=== PATIENT | female | born 1995 | race Caucasian/White ===

== ENCOUNTER 2019-12-05 23:11 | Observation (INO) | payer OTHER, SELFPAY ==
[2019-12-05 23:39] VITALS: BP 106/64; PULSE 83
--- NOTE | 2020-01-03 08:30 | PM.OBTRLD ---
OB - Triage/Final Diagnosis Final Diagnosis (1) False labor: Code(s): O47.9 - False labor, unspecified Status: Acute
== END 2019-12-06 01:10 | disposition home or self-care (01) ==
PROVIDERS: Admitting Provider Obstetrics & Gynecology; Visit Provider Obstetrics & Gynecology
DX: O47.1 False labor at or after 37 completed weeks of gestation (principal); Z3A.37 37 weeks gestation of pregnancy
CPT/HCPCS: G0378; G0379

== ENCOUNTER 2019-12-15 10:18 | Observation (INO) | payer OTHER, SELFPAY ==
[2019-12-15 10:18] VITALS: BMI 28.2
--- NOTE | 2019-12-15 13:37 | OBADM ---
This patient, Minda Galvin, admitted to the OB room Labor/Delivery/Recovery 106 for observation. Patient/family oriented to hospital policies and general routines including ID bracelet, bed and alarms, visiting hours, pain management, procedures, bathroom and other care routines, personal items, smoking policy, room service/diet, and visiting hours. Patient/Family are encouraged to report perceived risks to care and to ask questions if they do not understand what they are told or what they should do.
--- NOTE | 2020-01-24 18:03 | PM.OBTRLD ---
OB - Triage/Final Diagnosis Final Diagnosis (1) False labor: Code(s): O47.9 - False labor, unspecified Status: Acute
== END 2019-12-15 12:47 | disposition home or self-care (01) ==
PROVIDERS: Admitting Provider Obstetrics & Gynecology; Visit Provider Obstetrics & Gynecology
DX: O47.1 False labor at or after 37 completed weeks of gestation (principal); Z3A.38 38 weeks gestation of pregnancy
CPT/HCPCS: G0378; G0379

== ENCOUNTER 2019-12-19 14:36 | Inpatient (IN) | payer OTHER, SELFPAY ==
[2019-12-19] VITALS (103 sets, daily range): BP systolic 97–137; BP diastolic 52–92; PULSE 51–101; TEMP 36.8–37; O2SAT 97–100; BMI 28.2
--- NOTE | 2019-12-19 16:13 | WPDHPUPDATE1 ---
History and Physical Update Update Date/Time: 12/19/19 16:10 24 yo G1 at 39w who presents in labor. she reports regular contrations and was found to be 3-4 cm dilated. She endorses good FM. She denies any vaginal bleeding or LOF. History and Physical has been reviewed, including an updated exam of the patient. There are NO changes in the patient's condition. Risks, benefits, and alternatives have been discussed and questions answered. Patient agrees to proceed with procedure. A/P admit to L&D routine admission orders T cat 1 expectant management
[2019-12-19 16:32] LABS: Basophils Absolute Auto 0.1 K/mm3 (0.0-0.1); Basophils Percent Auto 0.4 % (0.2-1.2); Eosinophils Absolute Auto 0.1 K/mm3 (0-0.3); Eosinophils Percent Auto 0.4 % (0-4.4); Hematocrit 33.3 % (37.0-47.0); Hemoglobin 11.1 g/dL (12.0-15.0); Immature Granulocyte Absolute 0.08 K/mm3 (0.00-0.031); Immature Granulocyte Percent A 0.6 % (0-0.5); Lymphocytes Absolute Auto 1.88 K/mm3 (0.9-3.2); Lymphocytes Percent Auto 13.8 % (18.3-44.2); Mean Corpuscular HGB Conc 33.3 g/dl (32-36); Mean Corpuscular Hemoglobin 31.7 pg (26-34); Mean Corpuscular Volume 95.1 fl (80-100); Mean Platelet Volume 10.1 fl (7.4-10.4); Monocytes Percent Auto 7.2 % (2.6-8.5); Neutrophils Absolute Auto 10.6 K/mm3 (1.3-6.7); Neutrophils Percent Auto 77.6 % (45.5-73.1); Platelet Count Result 294 k/mm3 (150-375); Red Cell Distribution Width 12.6 % (11.5-14.5); White Blood Count 13.6 K/mm3 (4.5-10.0)
[2019-12-19] MEDS: AMPICILLIN 2 GM/NS 100 ML 2 GM/100 ML BAG IVPB (16:33)
[2019-12-19] MEDS: LACTATED RINGERS 1,000 ML 125 ML IV CONT ×2 (16:34→18:43)
--- NOTE | 2019-12-19 16:55 | LDADM ---
This patient, Minda Galvin, was admitted to Labor/Delivery/Recovery 104 on 12/19/19 at 14:36. Plans for labor, pain management and were discussed with patient. Patient/family oriented to hospital policies and general routines including ID bracelet, bed and alarms, visiting hours, pain management, procedures, bathroom and other care routines, personal items, smoking policy, room service/diet and guest tray routines, infant security routines, and visiting hours. Patient/Family are encouraged to report perceived risks to care and to ask questions if they do not understand what they are told or what they should do. See OBIX for further documentation.
[2019-12-19 17:47] LABS: Amphetamine Screen Urine Negative (Negative); Barbiturate Screen Urine Negative (Negative); Benzodiazepines Screen Urine Negative (Negative); Cannabinoid Screen Urine Positive (Negative); Cocaine Screen Urine Negative (Negative); Methadone Screen Urine Negative (Negative); Opiate Screen Urine Negative (Negative); Phencyclidine Screen Urine Negative (Negative)
--- NOTE | 2019-12-19 18:51 | WPDANESEPPF ---
Anes - Initial Pre Proc Eval Procedure: labor epidural Date/Time: 12/19/19 18:51 Surgeon: Shmuel Platt MD Pre Op Diagnosis: labor pain Pre Op Diagnosis: labor pain Patient Data Age: 24 Gender: F Height: 1.57 m Weight: 70 kg Last Vital Signs Temp 36.8 C 12/19/19 18:47 Pulse 69 12/19/19 18:46 BP 119/78 12/19/19 18:46 Pulse Ox 98 12/19/19 18:48 Allergies Allergy/AdvReac Type Severity Reaction Status Date / Time morphine Allergy Unknown Verified 04/07/16 15:40 Home Medications Medication Instructions Recorded Confirmed Type PNV cmb#95-ferrous fumarate-FA 1 tablet PO DAILY 12/08/19 12/08/19 History [] fluoxetine 20 mg PO DAILY 12/08/19 12/08/19 History Laboratory Tests 12/19/19 12/19/19 12/19/19 16:10 16:10 16:10 WBC 13.6 K/mm3 H K/mm3 (4.5-10.0) RBC 3.50 M/mm3 L M/mm3 (4.2-5.4) Hgb 11.1 g/dL L g/dL (12.0-15.0) Hct 33.3 % L % (37.0-47.0) MCV 95.1 fl fl (80-100) MCH 31.7 pg pg (26-34) MCHC 33.3 g/dl g/dl (32-36) RDW 12.6 % % (11.5-14.5) Plt Count 294 k/mm3 k/mm3 (150-375) MPV 10.1 fl fl (7.4-10.4) Immature Gran % (Auto) 0.6 % H % (0-0.5) Neut % (Auto) 77.6 % H % (45.5-73.1) Lymph % (Auto) 13.8 % L % (18.3-44.2) [place] % (Auto) 7.2 % % (2.6-8.5) Eos % (Auto) 0.4 % % (0-4.4) Baso % (Auto) 0.4 % % (0.2-1.2) Lymph # (Auto) 1.88 K/mm3 K/mm3 (0.9-3.2) [place] # (Auto) 1.0 K/mm3 H K/mm3 (0.1-0.6) Eos # (Auto) 0.1 K/mm3 K/mm3 (0-0.3) Baso # (Auto) 0.1 K/mm3 K/mm3 (0.0-0.1) Abs Immat Gran (auto) 0.08 K/mm3 H K/mm3 (0.00-0.031) Absolute Neuts (auto) 10.6 K/mm3 H K/mm3 (1.3-6.7) Absolute Nucleated RBC 0.0 K/mm3 K/mm3 (0.0-0.012) Nucleated RBC % 0.0 % % (0.0-0.2) Urine Opiates Screen Urine Methadone Screen Ur Barbiturates Screen Ur Phencyclidine Scrn Ur Amphetamine Screen U Benzodiazepines Scrn Urine Cocaine Screen U Cannabinoids Screen RPR Pending Blood Type A Positive Antibody Screen Negative 12/19/19 17:22 WBC RBC Hgb Hct MCV MCH MCHC RDW Plt Count MPV Immature Gran % (Auto) Neut % (Auto) Lymph % (Auto) [place] % (Auto) Eos % (Auto) Baso % (Auto) Lymph # (Auto) [place] # (Auto) Eos # (Auto) Baso # (Auto) Abs Immat Gran (auto) Absolute Neuts (auto) Absolute Nucleated RBC Nucleated RBC % Urine Opiates Screen Negative (Negative) Urine Methadone Screen Negative (Negative) Ur Barbiturates Screen Negative (Negative) Ur Phencyclidine Scrn Negative (Negative) Ur Amphetamine Screen Negative (Negative) U Benzodiazepines Scrn Negative (Negative) Urine Cocaine Screen Negative (Negative) U Cannabinoids Screen Positive A (Negative) RPR Blood Type Antibody Screen Patient hx anesthesia problems: none Family hx anesthesia problems: none COUNT INCLUDES THE [facility] Family History Family History Mother Family history of cardiovascular disease Sibling Diabetes mellitus Grandparent Diabetes mellitus Social History Social History Years smoked: 12 Smoking status: Current every day smoker Second hand tobacco smoke exposure: Yes Alcohol intake: never Substance use: current Last use: 12/07/19 Gender identity (if verbalized by the patient): Female Spiritual care concerns: No Anes - Eval Final PreProcedure Day of Procedure 12/19/19 18:51 Patient
[2019-12-19] MEDS: FAMOTIDINE 20 MG/2 ML VIAL IV PUSH (19:39)
[2019-12-19] MEDS: ONDANSETRON INJ 4 MG/2 ML VIAL IV PUSH (19:54)
[2019-12-19] MEDS: AMPICILLIN 1 GM/NS 50 ML 1 GM/50 ML BAG IVPB (20:27)
[2019-12-20] VITALS (132 sets, daily range): BP systolic 84–134; BP diastolic 46–100; PULSE 58–159; RESP 16; TEMP 36.8–37.7; O2SAT 93–100
[2019-12-20] MEDS: AMPICILLIN 1 GM/NS 50 ML 1 GM/50 ML BAG IVPB ×2 (00:12→04:33)
[2019-12-20] MEDS: LACTATED RINGERS 1,000 ML 125 ML IV CONT ×2 (00:12→06:37)
[2019-12-20] MEDS: ONDANSETRON INJ 4 MG/2 ML VIAL IV PUSH ×2 (05:30→17:32)
[2019-12-20] MEDS: METHYLERGONOVINE MALEATE 0.2 MG/ML VIAL (08:02)
--- NOTE | 2019-12-20 08:11 | PM.OBPRVD ---
OB - Delivery Note Procedure Procedure: Patient pushed for a spontaneous vaginal delivery. The fetus was delivered atraumatically and placed on the maternal abdomen. The cord was clamped and cut after 1 minute of life. The cord was double clamped and cut and a segment of cord was collected for cord gases. Cord blood was collected for blood type and Coomb's testing. The placenta delivered spontaneously and was noted to be intact. The perineum was inspected and there was a 1st degree perineal laceration. The laceration was repaired with 3-0 vicryl in the usual fashion. The uterus was noted to be boggy with continued bleeding. IM methergine was given. After fundal massage and methergine, the uterus was firm and good hemostasis was noted. The patient and fetus were stable in the delivery room. Intrapartal events: None Delivery augmentation: pitocin Delivery monitor: external FHT Route of delivery: Episiotomy description: None Laceration description: Perineal - 1st Degree Delivery repair: vicryl Specimen: No Estimated blood loss (mL): 250 Anesthesia type: Epidural Disposition: floor () Complications: No immediate complications [place] Baby Date of : 12/20/19 Time of : 07:48 Weeks of gestation at delivery: 39 Infant gender: Male Weight (pounds): 9 Weight (ounces): 1 presentation: vertex position: Right Occiput Anterior Placenta delivery description: Spontaneous cord vessel description: 3 Vessels score one minute: 9 score five minutes: 9
[2019-12-20] MEDS: BENZOCAINE 20% AER SPR (*SP) 56 GM CAN 1 SPRAY TOPICAL (09:20)
[2019-12-20] MEDS: IBUPROFEN 600 MG TABLET PO ×2 (09:20→19:30)
[2019-12-20] MEDS: WITCH HAZEL 40 PADS 1 PAD TOPICAL (09:20)
[2019-12-20] MEDS: FLUOXETINE HCL 20 MG CAP PO (09:21)
[2019-12-20] MEDS: ACETAMINOPHEN 325 MG TABLET 650 MG PO (10:03)
--- NOTE | 2019-12-20 12:06 | PC.NURSE ---
Patient transferred to post room #282 via wheelchair. Support person present. Oriented to unit, room, information board, rooming in, admission packet and security measures. Patient verbalizes understanding.
--- NOTE | 2019-12-20 12:10 | PC.NURSE ---
Consulted with patient, mother states she wishes to attempt to breast. Mother is making independent attempts to latch without success. Reviewed feeding cues, frequencies, duration of feedings, feeding elimination flow sheet, and signs of adequate intake. sleepy, demonstrated stimulation techniques to wake infant for feeding. Assisted with infant to breast. tends to suck on his tongue. Reviewed positioning/alignment in football, holding breast in C hold and guided asymmetrical latch on. Several attempts before infant was able to latch correctly. nursed eagerly, with steady draws and [frequent/occasional] swallowing noted. Reviewed signs of a correct latch, effective nursing and suck swallow ratio. would draw back and slip down to shallow latch, with mother reporting discomfort. Demonstrated how to adjust latch more deeply while feeding. Nipple care reviewed. Instructed mother to call out for RN assistance if she is unable to latch for feeding or she has discomfort with nursing. Instructed feeding should be initiated three hours from start of last feeding or if feeding cues are noted before. Mother voiced understanding of information shared.
[2019-12-20] MEDS: TETANUS,DIPHTHERIA,AC PERTUSSIS ADULT 0.5 ML (ADACEL) IM (19:43)
[2019-12-21] MEDS: IBUPROFEN 600 MG TABLET PO ×2 (04:37→12:49)
[2019-12-21 05:48] LABS: Hematocrit 29.1 % (37.0-47.0); Hemoglobin 9.6 g/dL (12.0-15.0)
--- NOTE | 2019-12-21 07:20 | PC.NURSE ---
PT introductions made and plan of care discussed per post , pain management, breast /bottle feeding, daily care activities. PT verbalized understanding of such care.
[2019-12-21 07:52] LABS: Rapid Plasma Reagin Non-Reactive (NonReactive)
[2019-12-21 08:00] VITALS: BP 109/51; PULSE 69; RESP 16; TEMP 36.8; O2SAT 99
[2019-12-21] MEDS: DOCUSATE SODIUM 100 MG CAPSULE PO ×2 (08:46→17:40)
[2019-12-21] MEDS: POLYSACCHARIDE IRON COMPLEX 150 MG CAPSULE PO ×2 (08:46→17:40)
[2019-12-21] MEDS: MULTIVIT/MIN/PREN/FOL AC/IRON TABLET 1 TAB PO (08:46)
[2019-12-21] MEDS: ACETAMINOPHEN 325 MG TABLET 650 MG PO ×2 (08:47→12:50)
[2019-12-21] MEDS: LANOLIN (LANSINOH) 7.5 GM CREAM 1 APPLIC TOPICAL (08:48)
--- NOTE | 2019-12-21 10:00 | PC.NURSE ---
Consult with pt., mother states she is mostly bottle feeding due to her wishes.
[2019-12-21] MEDS: FLUOXETINE HCL 20 MG CAP PO (10:19)
--- NOTE | 2019-12-21 11:32 | PC.NURSE ---
PT requested to go out to smoke. No smoking policy was discussed with pt and hospital procedure. Nicotine patch was offered and pt declined and still plans to go out to smoke unattended.
--- NOTE | 2019-12-21 13:02 | WPDANLDPN2 ---
Anes-Prog Note L&D Date/Time: 12/21/19 13:02 Comfortable throughout: labor and delivery Neuraxial method: epidural Epidural/Spinal procedure site: clean & non-tender Neuro status: Neuro function grossly intact. Cardiovascular status: normal Respiratory status: normal Airway patency: baseline Mental status: baseline Post-Op hydration status: normal Vital Signs: Last Vital Signs Temp 36.8 C 12/21/19 08:00 Pulse 69 12/21/19 08:00 Resp 16 12/21/19 08:00 BP 109/51 L 12/21/19 08:00 Pulse Ox 99 12/21/19 08:00 Post-procedural complaints: none Patient feedback: Patient satisfied with anesthetic care. Other findings: Pt with c/o intense pressure at time of complete to delivery
--- NOTE | 2019-12-21 16:29 | PM.OBPNVD ---
OB - PN: Subj Subjective Date/time seen: 12/21/19 16:29 Narrative: Pain OK. Desires circumcision for son. OB - PN: Obj Data Labs CBC & Chem 7: 12/21/19 04:39 Labs: Laboratory Results - last 24 hr 12/19/19 12/21/19 16:10 04:39 Hgb 9.6 L Hct 29.1 L RPR Non-reactive OB - PN A/P Plan Comments: A: PPD#1, doing well. P: Routine care. Reviewed circ. Exam Psych: Other: AVSS ABD soft, nontender, fundus firm EXT nontender
[2019-12-21 19:58] VITALS: BP 114/49; PULSE 72; RESP 16; TEMP 36.8
--- NOTE | 2019-12-22 06:30 | PC.NURSE ---
PT introductions made and plan of care discussed per post , pain management, breast /bottle feeding, daily care activities and pending discharge to home. PT verbalized understanding of such care.
[2019-12-22 08:25] VITALS: BP 114/76; PULSE 66; RESP 18; TEMP 37.2; O2SAT 99
[2019-12-22] MEDS: FLUOXETINE HCL 20 MG CAP PO (08:26)
[2019-12-22] MEDS: MULTIVIT/MIN/PREN/FOL AC/IRON TABLET 1 TAB PO (08:26)
[2019-12-22] MEDS: IBUPROFEN 600 MG TABLET PO (08:27)
[2019-12-22] MEDS: DOCUSATE SODIUM 100 MG CAPSULE PO (08:27)
[2019-12-22] MEDS: POLYSACCHARIDE IRON COMPLEX 150 MG CAPSULE PO (08:27)
[2019-12-22] MEDS: ACETAMINOPHEN 325 MG TABLET 650 MG PO (08:28)
--- NOTE | 2019-12-22 08:36 | PM.OBPNVD ---
OB - PN: Subj Subjective Date/time seen: 12/22/19 08:36 Narrative: Pain OK. Would like to go home. Interested in DMPA for contraception. OB - PN: Obj Data Labs CBC & Chem 7: 12/21/19 04:39 OB - PN A/P Plan Comments: A: PPD#2, doing well. P: Home to f/u 6 weeks. DMPA today. Exam Psych: Other: AVSS ABD soft, nontender, fundus firm EXT nontender
--- NOTE | 2019-12-22 08:37 | PM.DS ---
DS: Summary Time Spent with Patient Time attestation: Total time spent providing and/or coordinating discharge services: Discharge Plan Discharge Attending physician on discharge: Shmuel Platt Discharging Clinician: Shmuel Platt Patient Disposition: Home, Self-Care Activity: pelvic rest Diet: regular Discharge Instructions: Education: Mom and Baby Guide Given to: Mother Follow-Up: Call your delivering provider's office for an appointment to be seen in: 4 Weeks Mom and baby should come to the [facility] for the follow-up appointment. Appointment Date/Time: December 23, 2019 at 9:00 am What to expect at your follow-up visit: Blood Pressure Check Call [phone] if you are unable to keep your appointment time. BREAST CARE: 1. Wear a snug supportive bra. 2. For engorgement discomfort: Breast Feeding: A. Apply warm moist washcloths B. Express milk as needed to relieve engorgement C. Wear loose clothing Bottle Feeding: A. May apply ice packs 3. For sore nipples: A. Identify correct latch-on B. Apply warm moist washcloths before and after nursing C. Air dry nipples after nursing D. May apply [place] cream to nipples PERINEAL CARE: 1. Until bleeding stops, use your jolanta bottle after urinating 2. Change your pad frequently throughout the day 3. You may take sitz baths several times a day (fill your bathtub with warm water and soak for 20 minutes.) Do NOT bathe in the water 4. No tub baths until seen by your physician - You may shower ACTIVITY: 1. Rest as much as possible. 2. Do not exercise or lift anything heavier than your baby (such as laundry or other children.) 3. Avoid stairs or driving as much as possible. 4. Do not put anything into the vagina. No douching, tampons, or sexual activity until seen by physician. NOTIFY PHYSICIAN IF YOU HAVE ANY QUESTIONS OR IF ANY OF THE FOLLOWING SYMPTOMS OCCUR: 1. If your perineum becomes red, swollen, or more painful than what you have experienced in the hospital. 2. If your vaginal bleeding becomes foul smelling. 3. If your vaginal bleeding becomes more heavy than a period or if your bleeding changes from pink to bright red. However, you may pass an occasional walnut-sized clot once or twice for the first week . 4. If you experience a sharp, shooting pain in you calves. 5. If you discover a hard, reddened area on your breast or if you experience flu-like symptoms. 6. Call for temp 100.4 or greater DIET: 1. Eat regular, well-balanced meals. 2. Drink plenty of fluids daily. If , drink to thirst. Patient Instructions: How to Stop Smoking (DC) Stand Alone Forms: General Discharge Information Follow-up/Referrals: Shmuel Platt MD [Physician] - (6 weeks) Discharge Medications: New ibuprofen 600 mg tablet 600 mg PO Q6H PRN (Reason: cramps) Qty: 30 RF: 0 ferrous sulfate 325 mg (65 mg iron) tablet 325 mg PO DAILY Qty: 30 RF: 0 Continued PNV cmb#95-ferrous fumarate-FA [] 28 mg iron- 800 mcg Tablet 1 tablet PO DAILY RF: 0 fluoxetine 20 mg Capsule 20 mg PO DAILY RF: 0 Date of admission: 12/19/19 14:36 Primary Care Provider: UNKNOWN,DOCTOR Admitting Provider: Shmuel Platt Attending physician on admission: Shmuel Platt
--- NOTE | 2019-12-22 10:00 | PC.NURSE ---
Patient viewed the discharge video Mother & Baby Care, The First Two Weeks . Patient was given the opportunity and encouraged to ask questions. Patient verbalized understanding of information shared and has been given the mother/baby guide for home reference.
--- NOTE | 2019-12-22 10:30 | PC.NURSE ---
Consult with pt., mother states she will mostly bottle feed, and plans to put to breast when her milk is in a few times per day. Mother states her plan is to mostly bottle feed, mother has mostly bottle fed while in the hospital. Discussed milk supply and stimulation. Mother states she has a pump at home and may initiate pumping. Instructions given on breast pump care and usage, pumping schedule, nipple care, and collection and storage of breast milk. Encouraged [id number], breast massage and manual expression to stimulate supply. Pumping log provided and reviewed. Stressed the importance of regular stimulation for increased milk supply. Mother is feeding as required and waking to feed if needed. is currently meeting outcomes for weight, output, jaundice and feeding frequencies. Mother states she feels confident to continue bottle feeding and putting infant to breast a few times per day at home. Reviewed transition to breast milk, signs of adequate intake, and engorgement/relief. Instructed to call ICP if intake/output less than required. Reviewed regular medications mother is taking. Information provided per Evie. Reviewed community resources on the [facility] website and in the Mom/Baby guide. Information on outpatient services provided. Mother has no further questions at this time.
[2019-12-22] MEDS: medroxyPROGESTERone ACETATE IM 150 MG/ML SYR IM (11:00)
--- NOTE | 2019-12-22 11:00 | PC.NURSE ---
PT received discharge instructions per protocol and verbalized understanding of such care,
--- NOTE | 2019-12-22 11:40 | PC.NURSE ---
Pt discharged to home ambulatory accompanied by significant other and to waiting car. Follow up appts confirmed
[2019-12-23 09:34] VITALS: BP 119/77; PULSE 63; RESP 18; TEMP 36.9
== END 2019-12-22 11:40 | disposition home or self-care (01) | DRG 560 ==
LOC: ANHLDR 12-20 08:37 → ANHOB2 12-20 10:51
PROVIDERS: Student in an Organized Health Care Education/Training Program; Admitting Provider Obstetrics & Gynecology; Visit Provider Obstetrics & Gynecology
DX: O99.824 Streptococcus B carrier state complicating childbirth (principal); Z37.0 Single live birth; Z3A.39 39 weeks gestation of pregnancy; O36.8330 Maternal care for abnormalities of the fetal heart rate or rhythm, third trimester, not applicable or unspecified; O70.0 First degree perineal laceration during delivery; O99.52 Diseases of the respiratory system complicating childbirth; J45.909 Unspecified asthma, uncomplicated; O99.334 Smoking (tobacco) complicating childbirth; F17.210 Nicotine dependence, cigarettes, uncomplicated
CPT/HCPCS: 36415; 80307; 85014; 85018; 85025; 86592; 86850; 86900; 86901; 90715; A9270; J0290; J1050; J2210; J2405; J2590; J2795; J3010; J7120

== ENCOUNTER 2020-03-02 15:00 | Emergency (ER) | payer OTHER, SELFPAY ==
--- NOTE | ~2020-03-02 | XR_ITS ---
EXAMINATION: XR chest 2V 03/02/2020 15:55 INDICATION: Shortness of breath. Cough. PROCEDURE: 2 view chest COMPARISON: 08/07/2015 FINDINGS: The lungs are clear. The cardiomediastinal silhouette is within normal limits. There are no pleural effusions. There is no pneumothorax suspected. IMPRESSION: 1: NO ACUTE CARDIOPULMONARY DISEASE. Reviewed, dictated and finalized at location A.
[2020-03-02 15:02] VITALS: BP 129/69; PULSE 85; RESP 20; TEMP 36.9; O2SAT 99
--- NOTE | 2020-03-02 15:20 | ED.GENADULT ---
HPI - General Adult General Chief complaint: Unspecified Stated complaint: SOB/multiple complaints Time Seen by Provider: 03/02/20 15:11 History of Present Illness HPI narrative: 24 yo female c/o SOB, numbness and tingling, hemoptysis. She gave aproximately 2 m,onths ago since that time she has had multiple issues. SHe has had ongoing vaginal bleeding which is mild to moderate. She was started on control to help stop the bleeding. She then began having itching and feeling as though her tongue was swelling. She was taken off of that medication. She then began having intermittent SOB and chest tightness. She has had similar symptoms due to anxiety, but she read the warning label on the control and is concerned that she might have a blood clot. Related Data Home Medications Medication Instructions Recorded Confirmed PNV cmb#95-ferrous fumarate-FA 1 tablet PO DAILY 12/08/19 12/08/19 [] fluoxetine 20 mg PO DAILY 12/08/19 12/08/19 Allergies Allergy/AdvReac Type Severity Reaction Status Date / Time morphine Allergy Unknown Unknown Verified 03/02/20 15:05 Review of Systems Review of Systems: All systems reviewed & are unremarkable except as noted in HPI and below Constitutional: Constitutional: Denies fever(s) Cardiovascular: Cardiovascular: Reports chest pain and Reports rapid heart rate Respiratory: Respiratory: Reports dyspnea Genitourinary: Genitourinary: Reports abnormal vaginal bleeding Neurologic: Reports numbness PMFSH Family History Family History Mother Family history of cardiovascular disease Sibling Diabetes mellitus Grandparent Diabetes mellitus Social History Social History Years smoked: 12 Smoking status: Current every day smoker Second hand tobacco smoke exposure: Yes Alcohol intake: never Substance use: current Last use: 12/07/19 Gender identity (if verbalized by the patient): Female Spiritual care concerns: No Exam Const: General: healthy appearing, no acute distress and alert Nutritional Appearance: well nourished Orientation/consciousness: patient oriented x3 HENMT: Head: normal to inspection Chest: Chest palpation & inspection: normal inspection of the chest Resp: Effort & Inspection: normal respiratory effort Auscultation: clear to auscultation bilaterally Cardio: Rate: regular rate Rhythm: regular rhythm GI: GI Palp: Yes Soft to palpation and No Tenderness to palpation present (GI) Skin: General skin exam: normal color Neuro: General: patient oriented x3, moves all extremities, no focal motor deficits and CN's II-XI intact bilaterally Speech: normal speech Extrem: General: normal to inspection and no edema Other: No calf tenderness Psych: Affect: Anxious affect present Course Vital Signs Vital signs: Vital Signs Temperature 36.9 C 03/02/20 15:02 Pulse Rate 85 03/02/20 15:02 Respiratory Rate 20 03/02/20 15:02 Blood Pressure 129/69 03/02/20 15:02 Pulse Oximetry 99 03/02/20 15:02 Temperature 36.9 C 03/02/20 15:02 Pulse Rate 90 03/02/20 16:45 Respiratory Rate 16 03/02/20 16:45 Blood Pressure 109/61 03/02/20 16:45 Pulse Oximetry 96 03/02/20 16:45 Medical Decision Making MDM Narrative Medical decision making narrative: CXR clear. H/H improved. No tahcycardia or other abnormal VS to suggest that testing for PE might be indicated. She syas that she is feeling much better after reassurance. Medical Records Medical records reviewed: Yes I reviewed the patient's medical records. Vital Signs Vital Signs: Vital Signs Temperature 36.9 C 03/02/20 15:02 Pulse Rate 85 03/02/20 15:02 Respiratory Rate 03/02/20 15:02 Blood Pressure 129/69 03/02/20 15:02 Pulse Oximetry 99 03/02/20 15:02 Temperature 36.9 C 03/02/20 15:02 Pulse Rate 90 03/02/20 16:45
[2020-03-02 15:47] LABS: Basophils Absolute Auto 0.1 K/mm3 (0.0-0.1); Eosinophils Absolute Auto 0.1 K/mm3 (0-0.3); Eosinophils Percent Auto 2.1 % (0-4.4); Hematocrit 38.4 % (37.0-47.0); Immature Granulocyte Absolute 0.01 K/mm3 (0.00-0.031); Immature Granulocyte Percent A 0.2 % (0-0.5); Lymphocytes Absolute Auto 1.27 K/mm3 (0.9-3.2); Lymphocytes Percent Auto 20.9 % (18.3-44.2); Mean Corpuscular HGB Conc 33.9 g/dl (32-36); Mean Corpuscular Hemoglobin 31.1 pg (26-34); Mean Corpuscular Volume 91.9 fl (80-100); Mean Platelet Volume 9.3 fl (7.4-10.4); Monocytes Absolute Auto 0.4 K/mm3 (0.1-0.6); Monocytes Percent Auto 6.3 % (2.6-8.5); Neutrophils Absolute Auto 4.2 K/mm3 (1.3-6.7); Neutrophils Percent Auto 69.5 % (45.5-73.1); Platelet Count Result 277 k/mm3 (150-375); Red Blood Count 4.18 M/mm3 (4.2-5.4); White Blood Count 6.1 K/mm3 (4.5-10.0)
[2020-03-02 15:58] LABS: Blood Urea Nitrogen 12 mg/dL (7-17); Calcium 9.1 mg/dL (8.4-10.2); Carbon Dioxide 21 mmol/L (22-30); Chloride 110 mmol/L (98-107); Estimated Glomerular Filt Rate > 60; Glucose 88 mg/dL (65-105); Potassium 3.5 mmol/L (3.4-5.0); Sodium 140 mmol/L (137-145)
[2020-03-02 16:45] VITALS: BP 109/61; PULSE 90; RESP 16; O2SAT 96
== END 2020-03-02 16:45 | disposition home or self-care (01) ==
PROVIDERS: Emergency Provider Emergency Medicine
DX: R06.02 Shortness of breath (principal); F17.200 Nicotine dependence, unspecified, uncomplicated
CPT/HCPCS: 36415; 71046; 80048; 85025; 99283

== ENCOUNTER 2021-09-12 13:58 | Emergency (ER) | payer OTHER, SELFPAY ==
--- NOTE | ~2021-09-12 | XR_ITS ---
EXAMINATION: XR chest 2V DATE: 09/12/2021 16:34 INDICATION: Palpitations. TECHNIQUE: Frontal and lateral views of the chest were obtained. COMPARISON: Chest 2 views 03/02/2020 FINDINGS: The chest demonstrates clear lungs without pneumonia, pleural effusion, or pneumothorax. Th e heart size is normal. IMPRESSION: 1. No acute cardiopulmonary disease. Reviewed, dictated and finalized at location A. TENDER
--- NOTE | 2021-09-12 14:01 | ECG_ITS ---
Measurements Intervals [place] Rate: 74 P: 68 CA: 147 QRS: 51 QRSD: 87 T: -9 QT: 337 QTc: 376 Interpretive Statements SINUS RHYTHM WITH SINUS ARRHYTHMIA POSSIBLE LEFT ATRIAL ENLARGEMENT DELAYED PRECORDIAL R/S TRANSITION BORDERLINE T WAVE ABNORMALITY- ANT/INF LEADS BASELINE ARTIFACT- I, V2 BORDERLINE ECG Electronically Signed On 09-12-2021 14:30:32 ECHOCARDIOLOGIST by Timmy Nicole D.O.
[2021-09-12 14:05] VITALS: BP 122/70; PULSE 110; RESP 16; TEMP 36.2; O2SAT 100
[2021-09-12 15:50] VITALS: BP 122/61; PULSE 72; RESP 16; O2SAT 99
[2021-09-12 16:08] LABS: Basophils Absolute Auto 0.1 K/mm3 (0.0-0.1); Basophils Percent Auto 0.8 % (0.2-1.2); Eosinophils Absolute Auto 0.1 K/mm3 (0-0.3); Eosinophils Percent Auto 0.8 % (0-4.4); Hematocrit 41.1 % (37.0-47.0); Hemoglobin 14.3 g/dL (12.0-15.0); Immature Granulocyte Absolute 0.03 K/mm3 (0.00-0.031); Immature Granulocyte Percent A 0.3 % (0-0.5); Lymphocytes Absolute Auto 1.65 K/mm3 (0.9-3.2); Lymphocytes Percent Auto 18.2 % (18.3-44.2); Mean Corpuscular HGB Conc 34.8 g/dl (32-36); Mean Corpuscular Hemoglobin 31.6 pg (26-34); Mean Corpuscular Volume 90.7 fl (80-100); Mean Platelet Volume 9.4 fl (7.4-10.4); Monocytes Absolute Auto 0.4 K/mm3 (0.1-0.6); Monocytes Percent Auto 4.3 % (2.6-8.5); Neutrophils Absolute Auto 6.8 K/mm3 (1.3-6.7); Neutrophils Percent Auto 75.6 % (45.5-73.1); Platelet Count Result 286 k/mm3 (150-375); Red Blood Count 4.53 M/mm3 (4.2-5.4); Red Cell Distribution Width 11.8 % (11.5-14.5); White Blood Count 9.1 K/mm3 (4.5-10.0)
[2021-09-12] MEDS: SODIUM CHLORIDE 0.9% IV 1,000 ML 999 ML IV CONT (16:10)
[2021-09-12 16:14] LABS: Prothrombin Time 12.7 Seconds (11.1-14.7)
[2021-09-12 16:15] LABS: Anion Gap 12 mmol/L (8-16); Blood Urea Nitrogen 11 mg/dL (7-17); Calcium 10.1 mg/dL (8.4-10.2); Carbon Dioxide 24 mmol/L (22-30); Chloride 101 mmol/L (98-107); Estimated CRCL calculation 96 ml/min; Estimated Glomerular Filt Rate > 60; Glucose 94 mg/dL (65-110); Partial Thromboplastin Time 27.5 SECONDS (22.3-36.8); Sodium 137 mmol/L (137-145)
[2021-09-12 16:27] LABS: Troponin I < 0.012 ng/mL (0.000-0.034)
--- NOTE | 2021-09-12 16:36 | ED.ARRPALP ---
HPI - Arrhythmia/Palpitations General Chief Complaint: Arrhythmia/Palpitations Stated Complaint: JITTERY, HEART PALPATATIONS X1D Time Seen by Provider: 09/12/21 15:36 History of Present Illness HPI narrative: Patient is a 26-year-old female who presents ER with concerns of palpitations. Reports she had similar issues a year ago and had a Holter monitor but could not see cardiology due to insurance issues. She has been doing well since then however over the last day she has had recurrence of this where she feels like her heart will go fast and she feels shaky in her hands. Patient has some pressured speech. Denies any alleviating factors. She reports she can feel the sensation when she is bending over or walking or doing other minor tasks. No shortness of breath. No fevers but has had some chills. No known sick contacts. Related Data Home Medications Medication Instructions Recorded Confirmed No Home Medications 09/12/21 09/12/21 Allergies Allergy/AdvReac Type Severity Reaction Status Date / Time morphine Allergy Unknown Unknown Verified 09/12/21 15:15 Review of Systems Review of Systems: All systems reviewed & are unremarkable except as noted in HPI and below Constitutional: Constitutional: Reports chills and Denies fever(s) Cardiovascular: Cardiovascular: Denies chest pain, Reports rapid heart rate and Denies radiating jaw, neck or arm pain Respiratory: Respiratory: Denies cough, Denies dyspnea and Denies wheezing Gastrointestinal: Gastrointestinal: Denies abdominal pain, Denies nausea and Denies vomiting PMFSH Past Medical History Medical History (Updated 09/12/21 @ 16:50 by Ammon Gallegos MD) Asthma Kidney stones Surgical History Surgical History (Updated 09/12/21 @ 16:45 by Ammon Gallegos MD) History of appendectomy History of tonsillectomy Family History Family History Mother Family history of cardiovascular disease Sibling Diabetes mellitus Grandparent Diabetes mellitus Social History Social History Years smoked: 12 Smoking status: Current every day smoker Second hand tobacco smoke exposure: Yes Alcohol intake: never Substance use: current Last use: 12/07/19 Gender identity (if verbalized by the patient): Female Spiritual care concerns: No Exam Narrative: GENERAL: Well-appearing, well-nourished, and in no acute distress. HEAD: Normocephalic, atraumatic. EYES: PERRL and EOMI. ENT: Mucous membranes moist. CHEST: Clear to auscultation. No respiratory distress. HEART: Regular rate and rhythm. Normal peripheral pulses. ABDOMEN: Soft, nontender, nondistended. EXTREMITIES: Normal range of motion. No edema. SKIN: Warm, dry, no rash. NEURO: Alert and oriented x3. PSYCH: Mildly anxious with pressured speech. Normal tone otherwise Course Course Emergency Course: Patient form results. Labs unremarkable. Discharge home. Patient has follow-up scheduled with PCP tomorrow. Vital Signs Vital signs: Vital Signs Temperature 97.1 F L 09/12/21 14:05 Pulse Rate 110 H 09/12/21 14:05 Respiratory Rate 16 09/12/21 14:05 Blood Pressure 122/70 09/12/21 14:05 Pulse Oximetry 100 09/12/21 14:05 Temperature 97.1 F L 09/12/21 14:05 Pulse Rate 72 09/12/21 15:50 Respiratory Rate 16 09/12/21 15:50 Blood Pressure 122/61 09/12/21 15:50 Pulse Oximetry 99 09/12/21 15:50 MDM - Arrhythmia/Palpitations Lab Data Result diagrams: 09/12/21 15:55 09/12/21 15:55 Labs: Lab Results 09/12/21 09/12/21 09/12/21 Range/Units 15:55 15:55 15:55 WBC 9.1 (4.5-10.0) K/mm3 RBC 4.53 (4.2-5.4) M/mm3 Hgb 14.3 (12.0-15.0) g/dL Hct 41.1 (37.0-47.0) % MCV 90.7 (80-100) fl MCH 31.6 (26-34) pg MCHC 34.8 (32-36) g/dl RDW 11.8 (11.5-14.5) % Plt Count 286 (150-375) k/mm3 MP
[2021-09-12 17:37] VITALS: BP 106/54; PULSE 83; RESP 16; O2SAT 100
== END 2021-09-12 17:38 | disposition home or self-care (01) ==
PROVIDERS: Emergency Provider Emergency Medicine
DX: R00.2 Palpitations (principal); F41.9 Anxiety disorder, unspecified; J45.909 Unspecified asthma, uncomplicated; Z87.442 Personal history of urinary calculi; F17.200 Nicotine dependence, unspecified, uncomplicated; R94.31 Abnormal electrocardiogram [ECG] [EKG]
CPT/HCPCS: 36415; 71046; 80048; 81025; 84484; 85025; 85610; 85730; 93005; 96360; 99284; J7030

== ENCOUNTER 2021-09-16 21:37 | Emergency (ER) | payer OTHER, SELFPAY ==
[2021-09-16 21:50] VITALS: BP 107/54; PULSE 73; RESP 17; TEMP 36.6; O2SAT 98
[2021-09-16 22:22] LABS: Add Urine Microscopic? YES; Appearance Urine Clear (Clear); Bilirubin Urine Negative (Negative); Blood Urine 3+ (Negative); Color Urine Straw (Yellow); Glucose Urine UA Negative (Negative); Ketones Urine Negative (Negative); Leukocyte Esterase Ur Negative LEU/UL (Negative); Nitrate Urine Negative (Negative); Protein Urine Negative (Negative); RBC Urine >75 /hpf (0-2); Specific Grav Ur 1.012 (1.001-1.035); Squamous Epithelial Cell Urine Rare /hpf (Few); Urobilinogen Urine Negative mg/dL (<2.0); WBC Urine 0-3 /hpf
[2021-09-16 23:21] VITALS: BP 97/70; PULSE 82; RESP 16; O2SAT 97
[2021-09-16] MEDS: FAMOTIDINE 20 MG TABLET PO (23:23)
[2021-09-16] MEDS: predniSONE 20 MG TABLET PO (23:24)
--- NOTE | 2021-09-16 23:38 | ED.ALLEREA ---
HPI - Allergic Reaction General Chief complaint: Allergic Reaction Stated complaint: throat tightness after taking nitrofurantoin Time Seen by Provider: 09/16/21 22:58 Source: patient Mode of arrival: ambulatory Limitations: no limitations History of Present Illness HPI narrative: 26 year old female with no significant PMH arrives complaining of throat tightness and bilateral hand rash, itching after taking macrobid. Patient took a total of 5 doses and after her fifth dose developed a lump in her throat, difficulty swallowing and rash to hands. No other known allergens, no previous history of same. No wheezing, no shortness of breath. 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 Patient arrives alert, NAD, speaking full sentences without difficulty, respirations unlabored. Related Data Allergies Allergy/AdvReac Type Severity Reaction Status Date / Time morphine Allergy Unknown Unknown Verified 09/16/21 21:55 nitrofurantoin Allergy Swelling Verified 09/16/21 21:55 [From Macrobid] of Lip/Tongue/Throat Review of Systems Review of Systems: CONSTITUTIONAL: no fever, no weight loss, no confusion EYES: no vision changes, no eye pain ENT: no rhinorrhea, no sore throat, positive for difficulty swallowing CARDIOVASCULAR: no chest pain, no leg edema, no palpitations RESPIRATORY: no cough, no shortness of breath, no hemoptysis GASTROINTESTINAL: no abdominal pain, no nausea, no vomiting GENITOURINARY: no flank pain, no dysuria, no hematuria SKIN: urticarial rash, no jaundice MUSCULOSKELETAL: no back pain, no trauma. NEUROLOGIC: No headache, no dizziness, no focal weakness PSYCHIATRIC: No hallucinations, no suicidal ideation [facility] Past Medical History Medical History Asthma Kidney stones Surgical History Surgical History History of appendectomy History of tonsillectomy Family History Family History Mother Family history of cardiovascular disease Sibling Diabetes mellitus Grandparent Diabetes mellitus Social History Social History Years smoked: 12 Smoking status: Current every day smoker Second hand tobacco smoke exposure: Yes Alcohol intake: never Substance use: current Last use: 12/07/19 Gender identity (if verbalized by the patient): Female Spiritual care concerns: No Exam Narrative: General: alert, afebrile, answering all questions appropriately Head: normocephalic, atraumatic Eyes: EOMI bilaterally, anicteric, no injection ENT: moist mucous membranes, oropharynx patent, uvula midline, no soft palate swelling Neck: supple, trachea midline, enlarged thyroid noted Chest: equal chest rise bilaterally, no chest wall trauma noted Lungs: clear to auscultation bilaterally, respirations unlabored CV: regular rate, no REMA B, calf size equal bilaterally EXT: no deformity noted, moving all extremities equally Skin: warm, dry, no pallor; urticarial rash B hands. Neuro: alert, oriented x 3; CN 2-12 grossly intact, no dysarthria Psych: affect appropriate, though content normal Course Vital Signs Vital signs: Vital Signs Temperature 36.6 C 09/16/21 21:50 Pulse Rate 73 09/16/21 21:50 Respiratory Rate 17 09/16/21 21:50 Blood Pressure 107/54 L 09/16/21 21:50 Pulse Oximetry 98 09/16/21 21:50 Temperature 36.6 C 09/16/21 21:50 Pulse Rate 82 09/16/21 23:21 Respiratory Rate 16 09/16/21 23:21 Blood Pressure 97/70 L 09/16/21 23:21 Pulse Oximetry 97 09/16/21 23:21 MDM - Allergic Reaction MDM Narrative Medical decision making narrative: Oropharynx patent, no shortness of breath, B hand rash with no other known allergens. Symptoms improved after taking benadryl at home. Plan to give prednisone in ED as well as pepcid. Advised
[2021-09-16 23:47] VITALS: BP 99/54; PULSE 71; RESP 20; O2SAT 97
== END 2021-09-16 23:55 | disposition home or self-care (01) ==
PROVIDERS: Emergency Medicine; Emergency Provider Emergency Medicine
DX: T78.40XA Allergy, unspecified, initial encounter (principal); J45.909 Unspecified asthma, uncomplicated; Z87.442 Personal history of urinary calculi
CPT/HCPCS: 81001; 81025; 99283; A9270; J7512

== ENCOUNTER 2021-09-22 15:36 | Emergency (ER) | payer OTHER, SELFPAY ==
--- NOTE | ~2021-09-22 | XR_ITS ---
EXAMINATION: XR chest 2V 09/22/2021 16:37 INDICATION: Chest palpitations. PROCEDURE: AP and lateral views of the chest COMPARISON: No prior studies for comparison. FINDINGS: The lungs are clear. The cardiomediastinal silhouette is within normal limits. There are no pleural effusions. There is no pneumothorax suspected. IMPRESSION: 1: NO ACUTE CARDIOPULMONARY DISEASE. Reviewed, dictated and finalized at location A. ER ELECTRICAL
[2021-09-22 16:00] VITALS: BP 109/67; PULSE 71; RESP 18; TEMP 36.4; O2SAT 98
--- NOTE | 2021-09-22 16:00 | ECG_ITS ---
Measurements Intervals [place] Rate: 73 P: 72 [place]: 139 QRS: 52 QRSD: 90 T: 9 QT: 388 QTc: 428 Interpretive Statements SINUS RHYTHM WITH MARKED SINUS ARRHYTHMIA BORDERLINE ST-T WAVE ABNORMALITY- INFERIOR LEADS BASELINE ARTIFACT- I, II, AVR BORDERLINE ECG Electronically Signed On 09-22-2021 17:40:54 PATROL LADY by Timmy Nicole D.O.
[2021-09-22 16:17] LABS: Basophils Absolute Auto 0.1 K/mm3 (0.0-0.1); Basophils Percent Auto 0.6 % (0.2-1.2); Eosinophils Absolute Auto 0.1 K/mm3 (0-0.3); Eosinophils Percent Auto 0.9 % (0-4.4); Hemoglobin 13.2 g/dL (12.0-15.0); Immature Granulocyte Absolute 0.02 K/mm3 (0.00-0.031); Immature Granulocyte Percent A 0.3 % (0-0.5); Lymphocytes Percent Auto 25.1 % (18.3-44.2); Mean Corpuscular HGB Conc 33.8 g/dl (32-36); Mean Corpuscular Hemoglobin 31.3 pg (26-34); Mean Corpuscular Volume 92.4 fl (80-100); Mean Platelet Volume 9.1 fl (7.4-10.4); Monocytes Absolute Auto 0.5 K/mm3 (0.1-0.6); Monocytes Percent Auto 6.4 % (2.6-8.5); Neutrophils Absolute Auto 5.3 K/mm3 (1.3-6.7); Neutrophils Percent Auto 66.7 % (45.5-73.1); Platelet Count Result 280 k/mm3 (150-375); Red Blood Count 4.22 M/mm3 (4.2-5.4)
[2021-09-22 16:21] VITALS: BP 129/72; PULSE 45; RESP 18; O2SAT 98
[2021-09-22 16:29] LABS: Alanine Aminotransferase 22 U/L (4-35); Albumin Level 4.7 g/dL (3.5-5.1); Alkaline Phosphatase 59 U/L (38-126); Anion Gap 7 mmol/L (8-16); Aspartate Amino Transferase 23 U/L (14-36); Bilirubin,Total 0.3 mg/dL (0.2-1.3); Blood Urea Nitrogen 12 mg/dL (7-17); Calcium 9.6 mg/dL (8.4-10.2); Carbon Dioxide 28 mmol/L (22-30); Chloride 101 mmol/L (98-107); Estimated CRCL calculation 83 ml/min; Estimated Glomerular Filt Rate > 60; Glucose 113 mg/dL (65-110); Potassium 3.8 mmol/L (3.4-5.0); Sodium 136 mmol/L (137-145)
[2021-09-22 17:24] VITALS: BP 132/96; PULSE 54; RESP 14; O2SAT 99
[2021-09-22] MEDS: SODIUM CHLORIDE 0.9% IV 1,000 ML 999 ML IV CONT (17:39)
--- NOTE | 2021-09-22 19:02 | ED.GENADULT ---
HPI - General Adult General Chief complaint: Dizziness Stated complaint: confusion, dizzy Time Seen by Provider: 09/22/21 16:31 History of Present Illness HPI narrative: Patient is a 26-year-old female who presents ER with reports of lightheadedness and confusion. Patient reports for the last week she has been having episodes where she gets lightheaded and she will then feel like she has tingling in her fingers and toes on occasion. She also occasionally feel like her heart is racing. She said no loss of consciousness. No fevers or chills or sweats. She feels better today than she had in previous days. She was recently started on Zoloft for her baseline anxiety. Reports this does not feel like her typical anxiety attack. No additional medication changes. Related Data Allergies Allergy/AdvReac Type Severity Reaction Status Date / Time morphine Allergy Unknown Hives Verified 09/22/21 16:24 nitrofurantoin Allergy Swelling Verified 09/22/21 16:24 [From Macrobid] of Lip/Tongue/Throat Review of Systems Review of Systems: All systems reviewed & are unremarkable except as noted in HPI and below Constitutional: Constitutional: Denies chills, Reports fatigue and Denies fever(s) ENT: Denies nasal congestion and Denies sore throat Cardiovascular: Cardiovascular: Denies chest pain, Reports rapid heart rate and Denies radiating jaw, neck or arm pain Respiratory: Respiratory: Denies cough and Denies dyspnea Genitourinary: Genitourinary: Denies nocturia, Denies dysuria and Denies flank pain Neurologic: Reports dizziness, Denies syncope, Denies headache(s), Denies focal weakness and Denies numbness PMF Past Medical History Medical History (Updated 09/22/21 @ 19:12 by Ammon Gallegos MD) Anxiety Asthma Kidney stones Surgical History Surgical History History of appendectomy History of tonsillectomy Family History Family History Mother Family history of cardiovascular disease Sibling Diabetes mellitus Grandparent Diabetes mellitus Social History Social History Years smoked: 12 Smoking status: Current every day smoker Second hand tobacco smoke exposure: Yes Alcohol intake: never Substance use: current Last use: 12/07/19 Gender identity (if verbalized by the patient): Female Spiritual care concerns: No Exam Narrative: GENERAL: Well-appearing, well-nourished, and in no acute distress. HEAD: Normocephalic, atraumatic. CHEST: Clear to auscultation. No respiratory distress. HEART: Regular rate and rhythm. Normal peripheral pulses. ABDOMEN: Soft, nontender, nondistended. EXTREMITIES: Normal range of motion. No edema. SKIN: Warm, dry, no rash. NEURO: Alert and oriented x3. PSYCH: Normal mood and affect. Course Course Emergency Course: Unremarkable evaluation. Discharge home. Likely anxiety. Vital Signs Vital signs: Vital Signs Temperature 97.6 F 09/22/21 16:00 Pulse Rate 71 09/22/21 16:00 Respiratory Rate 18 09/22/21 16:00 Blood Pressure 109/67 09/22/21 16:00 Pulse Oximetry 98 09/22/21 16:00 Temperature 97.6 F 09/22/21 16:00 Pulse Rate 54 L 09/22/21 17:24 Respiratory Rate 14 09/22/21 17:24 Blood Pressure 132/96 H 09/22/21 17:24 Pulse Oximetry 99 09/22/21 17:24 Medical Decision Making Vital Signs Vital Signs: Vital Signs Temperature 97.6 F 09/22/21 16:00 Pulse Rate 71 09/22/21 16:00 Respiratory Rate 18 09/22/21 16:00 Blood Pressure 109/67 09/22/21 16:00 Pulse Oximetry 98 09/22/21 16:00 Temperature 97.6 F 09/22/21 16:00 Pulse Rate 54 L 09/22/21 17:24 Respiratory Rate 14 09/22/21 17:24 Blood Pressure 132/96 H 09/22/21 17:24 Pulse Oximetry 99 09/22/21 17:24 Lab Data Result diagrams: 09/22/21 16:11 09/22/21 16:11
[2021-09-22 19:28] VITALS: BP 120/76; PULSE 68; RESP 16; O2SAT 100
== END 2021-09-22 19:34 | disposition home or self-care (01) ==
PROVIDERS: Emergency Provider Emergency Medicine; PCP Emergency Medicine
DX: R42 Dizziness and giddiness (principal); F41.9 Anxiety disorder, unspecified; J45.909 Unspecified asthma, uncomplicated; Z87.442 Personal history of urinary calculi; F17.200 Nicotine dependence, unspecified, uncomplicated; R94.31 Abnormal electrocardiogram [ECG] [EKG]
CPT/HCPCS: 36415; 71046; 80053; 81025; 85025; 93005; 96360; 99284; J7030

== ENCOUNTER 2021-11-08 04:21 | Emergency (ER) | payer OTHER, SELFPAY ==
--- NOTE | ~2021-11-08 | CT_ITS ---
EXAMINATION: CT abdomen pelvis wo con DATE: 11/08/2021 05:40 INDICATION: Right flank pain. Right lower quadrant abdominal pain. TECHNIQUE: Computed tomography (CT) of the abdomen and pelvis was performed without intravenous contr ast. Automated exposure control and iterative reconstruction technique were employed. The dose-length product was 352.90 mGy-cm. COMPARISON: CT abdomen and pelvis 10/18/2016 FINDINGS: The visualized portions of the lung bases are clear without pneumonia or pleural effusion. The heart size is normal. No pericardial effusion. The liver, gallbladder, spleen, pancreas, adrenal glands, and kidneys are normal. There is mild right hydroureter. The bladder is markedly distended. T here are no dilated loops of bowel. There are changes of appendectomy. There is physiologic fluid in the pelvis. There are no pathologically enlarged lymph nodes. There is mild lumbar spondylosis. IMPRESSION: 1. Markedly distended bladder with mild right hydroureter. Reviewed, dictated and finalized at location B. ESTATE CLOSER
[2021-11-08 04:32] VITALS: BP 107/81; PULSE 80; RESP 20; TEMP 36.6; O2SAT 100
--- NOTE | 2021-11-08 04:44 | ED.GENADULT ---
HPI - General Adult General Chief complaint: Abdominal Pain Stated complaint: Vaginal pain Time Seen by Provider: 11/08/21 04:44 History of Present Illness HPI narrative: Patient a 26-year-old female who presents the emergency department with chief complaint of vaginal pain and right lower quadrant pain. The patient reports the pain began this evening when she was participating in intercourse activities. Patient reports that it was sudden onset of sharp pain in the right deep vaginal area and the right lower quadrant that radiates to the back. Patient reports symptoms are not worsened by anything proved by anything. Patient reports no nausea Related Data Allergies Allergy/AdvReac Type Severity Reaction Status Date / Time morphine Allergy Unknown Hives Verified 11/08/21 04:48 nitrofurantoin Allergy Swelling Verified 11/08/21 04:48 [From Macrobid] of Lip/Tongue/Throat Review of Systems Review of Systems: A 10 system review of systems was completed on the patient and is negative except for what is stated in the HPI. Nursing and ancillary documentation was reviewed. [facility] Past Medical History Medical History Anxiety Asthma Kidney stones Surgical History Surgical History History of appendectomy History of tonsillectomy Family History Family History Mother Family history of cardiovascular disease Sibling Diabetes mellitus Grandparent Diabetes mellitus Social History Social History Years smoked: 12 Smoking status: Current every day smoker Second hand tobacco smoke exposure: Yes Alcohol intake: never Substance use: current Last use: 12/07/19 Gender identity (if verbalized by the patient): Female Spiritual care concerns: No Exam Narrative: GENERAL: Well-appearing, well-nourished, and in moderate pain distress. HEAD: Normocephalic, atraumatic. EYES: PERRLA and EOMI. ENT: Nares clear, no rhinorrhea or epistaxis. Mucous membranes moist. NECK: Supple. CHEST: Clear to auscultation. No respiratory distress. HEART: Regular rate and rhythm. No murmur heard. Normal peripheral pulses. ABDOMEN: Soft, mild tenderness to palpation the right lower quadrant, nondistended, normal active bowel sounds. EXTREMITIES: Normal range of motion. No edema. SKIN: Warm, dry, no rash. NEURO: No focal deficits. Alert and oriented x3. PSYCH: Normal mood and affect. Course Course Emergency Course: CT scan showed a significant amount of urinary retention. The patient was allowed to urinate again and still had a significant postvoid residual A Newsome catheter was placed but drained approximately 500 mL of urine Vital Signs Vital signs: Vital Signs Temperature 36.6 C 11/08/21 04:32 Pulse Rate 80 11/08/21 04:32 Respiratory Rate 20 11/08/21 04:32 Blood Pressure 107/81 11/08/21 04:32 Pulse Oximetry 100 11/08/21 04:32 Temperature 36.6 C 11/08/21 04:32 Pulse Rate 80 11/08/21 06:59 Respiratory Rate 20 11/08/21 06:59 Blood Pressure 111/67 11/08/21 06:59 Pulse Oximetry 100 11/08/21 06:59 Medical Decision Making Vital Signs Vital Signs: Vital Signs Temperature 36.6 C 11/08/21 04:32 Pulse Rate 80 11/08/21 04:32 Respiratory Rate 20 11/08/21 04:32 Blood Pressure 107/81 11/08/21 04:32 Pulse Oximetry 100 11/08/21 04:32 Temperature 36.6 C 11/08/21 04:32 Pulse Rate 80 11/08/21 06:59 Respiratory Rate 20 11/08/21 06:59 Blood Pressure 111/67 11/08/21 06:59 Pulse Oximetry 100 11/08/21 06:59 Lab Data Result diagrams: 11/08/21 04:56 11/08/21 04:56 Labs: Lab Results 11/08/21 11/08/21 11/08/21 Range/Units 04:56 04:56 04:56 WBC 9.2 (4.5-10.0) K/mm3 RBC 4
[2021-11-08] MEDS: HYDROmorphone HCL INJ (*CRX) 1 MG/ML SYR 0.5 MG IV PUSH (04:48)
[2021-11-08] MEDS: SODIUM CHLORIDE 0.9% IV 1,000 ML 999 ML IV CONT (04:48)
[2021-11-08] MEDS: ONDANSETRON INJ 4 MG/2 ML VIAL IV PUSH (04:49)
[2021-11-08 05:03] LABS: Basophils Absolute Auto 0.1 K/mm3 (0.0-0.1); Basophils Percent Auto 0.8 % (0.2-1.2); Eosinophils Absolute Auto 0.2 K/mm3 (0-0.3); Eosinophils Percent Auto 1.7 % (0-4.4); Hematocrit 39.1 % (37.0-47.0); Immature Granulocyte Absolute 0.02 K/mm3 (0.00-0.031); Immature Granulocyte Percent A 0.2 % (0-0.5); Lymphocytes Absolute Auto 2.24 K/mm3 (0.9-3.2); Lymphocytes Percent Auto 24.5 % (18.3-44.2); Mean Corpuscular HGB Conc 33.2 g/dl (32-36); Mean Corpuscular Hemoglobin 31.3 pg (26-34); Mean Platelet Volume 9.3 fl (7.4-10.4); Monocytes Absolute Auto 0.7 K/mm3 (0.1-0.6); Monocytes Percent Auto 7.3 % (2.6-8.5); Neutrophils Percent Auto 65.5 % (45.5-73.1); Platelet Count Result 252 k/mm3 (150-375); Red Blood Count 4.16 M/mm3 (4.2-5.4); White Blood Count 9.2 K/mm3 (4.5-10.0)
[2021-11-08 05:13] LABS: Add Urine Microscopic? YES; Appearance Urine Clear (Clear); Bacteria Urine Trace /hpf; Bilirubin Urine Negative (Negative); Blood Urine 2+ (Negative); Color Urine Colorless (Yellow); Glucose Urine UA Negative (Negative); Ketones Urine Negative (Negative); Leukocyte Esterase Ur Negative LEU/UL (Negative); Mucus Urine Rare /lpf; Nitrate Urine Negative (Negative); Protein Urine Negative (Negative); Specific Grav Ur 1.006 (1.001-1.035); Squamous Epithelial Cell Urine Occasional /hpf (Few); Urobilinogen Urine Negative mg/dL (<2.0); WBC Urine 0-3 /hpf
[2021-11-08 05:14] LABS: Alanine Aminotransferase 27 U/L (4-35); Albumin Level 4.6 g/dL (3.5-5.1); Alkaline Phosphatase 56 U/L (38-126); Anion Gap 10 mmol/L (8-16); Aspartate Amino Transferase 24 U/L (14-36); Bilirubin,Total 0.4 mg/dL (0.2-1.3); Blood Urea Nitrogen 15 mg/dL (7-17); Calcium 9.3 mg/dL (8.4-10.2); Carbon Dioxide 24 mmol/L (22-30); Chloride 103 mmol/L (98-107); Estimated CRCL calculation 96 ml/min; Estimated Glomerular Filt Rate > 60; Glucose 116 mg/dL (65-110); Lipase 56 U/L (23-300); Potassium 3.9 mmol/L (3.4-5.0); Sodium 137 mmol/L (137-145)
[2021-11-08 05:40] VITALS: BP 110/71; PULSE 65; RESP 13; O2SAT 99
[2021-11-08] MEDS: HYDROmorphone HCL INJ (*CRX) 1 MG/ML SYR IV PUSH (05:44)
--- NOTE | 2021-11-08 06:27 | PC.NURSE ---
Bladder scan VORB ERP [place]. After void, pt holds 263 ml urine per bladder scan. VORB Newsome placement.
[2021-11-08 06:59] VITALS: BP 111/67; PULSE 80; RESP 20; O2SAT 100
[2021-11-08] MEDS: PROCHLORPERAZINE EDISYLATE 10 MG/2 ML VIAL IV PUSH (06:59)
[2021-11-08 07:01] VITALS: BP 102/50; PULSE 84; RESP 17; O2SAT 99
== END 2021-11-08 07:15 | disposition home or self-care (01) ==
PROVIDERS: Emergency Provider Emergency Medicine; PCP Emergency Medicine
DX: R33.9 Retention of urine, unspecified (principal); R10.31 Right lower quadrant pain; Z87.442 Personal history of urinary calculi; J45.909 Unspecified asthma, uncomplicated; F17.200 Nicotine dependence, unspecified, uncomplicated
CPT/HCPCS: 36415; 74176; 80053; 81001; 81025; 83690; 85025; 96361; 96374; 96375; 96376; 99284; J0780; J1170; J2405; J7030

== ENCOUNTER 2021-12-06 12:33 | Outpatient (CLI) | payer OTHER, SELFPAY ==
--- NOTE | ~2021-12-06 | US_ITS ---
EXAMINATION: US renal BI EXAM DATE: 12/06/2021 13:12 INDICATION: Hydronephrosis. CT on 11/08/2021. TECHNIQUE: Multiple grayscale and Doppler images of the kidneys were obtained (by a technologist who performed the scan) and subsequently reviewed. Correlation is made to CT abdomen pelvis 11/08/2021. FINDINGS: Right kidney: There is normal contour and echogenicity. It measures 10.3 x 5.6 x 5.5 centimeters. T here are no focal renal lesions identified. There is no hydronephrosis. Left kidney: There is normal contour and echogenicity. It measures 11.3 x 5.8 x 5.0 centimeters. Th ere are no focal renal lesions identified. There is no hydronephrosis. Bladder unremarkable. Bilateral ureteral jets confirmed. IMPRESSION: 1. Sonographically unremarkable kidneys. Reviewed, dictated and finalized at location B. E [employer]UT[employer] CONSULTANT
== END 2021-12-06 12:34 | disposition home or self-care (01) ==
LOC: ANHIMG 12:39
PROVIDERS: PCP Emergency Medicine; Visit Provider Nurse Practitioner
DX: N13.30 Unspecified hydronephrosis (principal)
CPT/HCPCS: 76775

== ENCOUNTER 2022-01-28 11:18 | Outpatient (CLI) | payer OTHER, SELFPAY ==
--- NOTE | 2022-01-28 | ECG_ITS ---
Measurements Intervals [place] Rate: 74 P: 65 [place]: 144 QRS: 37 QRSD: 87 T: 9 QT: 392 QTc: 435 Interpretive Statements SINUS RHYTHM WITH SINUS ARRHYTHMIA Electronically Signed On 01-28-2022 11:44:45 CDT by Logan Galan M.D.
== END 2022-01-28 11:19 | disposition home or self-care (01) ==
LOC: ANHCARD 11:22
PROVIDERS: PCP Emergency Medicine; Visit Provider Obstetrics & Gynecology
DX: R00.0 Tachycardia, unspecified (principal); I49.8 Other specified cardiac arrhythmias
CPT/HCPCS: 93005

== ENCOUNTER 2022-02-28 15:07 | Emergency (ER) | payer OTHER, SELFPAY ==
[2022-02-28 15:21] VITALS: BP 112/57; PULSE 94; RESP 18; TEMP 36.9; O2SAT 99
--- NOTE | 2022-02-28 16:55 | ED.GENADULT ---
HPI - General Adult General Chief complaint: Headache Stated complaint: migraine headache - 12 weeks Time Seen by Provider: 02/28/22 16:20 Source: patient and RN notes reviewed Mode of arrival: ambulatory Limitations: no limitations History of Present Illness HPI narrative: 26-year-old female history of migraines presented to the emergency department for evaluation of frontal headache that started a few days ago. Patient states she has a frontal pressure headache that does feel dissimilar than her previous headaches. Patient has taken Tylenol with codeine for pain control. Patient did have follow-up at an outside hospital and was treated for urinary tract infection. She does not think they gave her any medications for her headache. Patient states the headache has persisted. Patient denies any fevers. Patient denies any neck pain or back pain. Patient does describe photophobia. Patient is approximately 12 weeks . Patient denies any lower abdominal cramping. Patient denies any vaginal bleeding or vaginal discharge. Related Data Allergies Allergy/AdvReac Type Severity Reaction Status Date / Time morphine Allergy Unknown Hives Verified 02/28/22 15:51 nitrofurantoin Allergy Swelling Verified 02/28/22 15:51 [From Macrobid] of Lip/Tongue/Throat prochlorperazine AdvReac Palpitation Verified 02/28/22 18:22 [From Compazine] s Review of Systems Review of Systems: CONSTITUTIONAL: Denies fever, chills, or sweats. EYES: Denies visual changes, redness, or discharge. ENT: Denies rhinorrhea, congestion, sore throat, or otalgia. CARDIOVASCULAR: Denies chest pain, palpitations, or edema. RESPIRATORY: Denies cough or dyspnea. GASTROINTESTINAL: Denies abdominal pain, does report some nausea GENITOURINARY: Denies dysuria or hematuria. SKIN: Denies rash or itching. MUSCULOSKELETAL: Denies back pain, joint pain, or myalgia. NEUROLOGIC: See HPI PSYCHIATRIC: Denies anxiety or depression. [facility] Past Medical History Medical History Anxiety Asthma Kidney stones Surgical History Surgical History History of appendectomy History of tonsillectomy Family History Family History Mother Family history of cardiovascular disease Sibling Diabetes mellitus Grandparent Diabetes mellitus Social History Social History Years smoked: 12 Smoking status: Current every day smoker Second hand tobacco smoke exposure: Yes Alcohol intake: never Substance use: current Last use: 12/07/19 Gender identity (if verbalized by the patient): Female Spiritual care concerns: No Exam Narrative: APPEARANCE: Well appearing, no pain, no distress, well-nourished. HEAD: normocephalic, atraumatic. EYES: PERRLA/EOMI, conjunctivae clear. NOSE: Normal no drainage EARS:TMS clear with good light reflex. THROAT: Pharynx clear, no exudate. NECK: Supple. No adenopathy, no masses. RESPIRATORY: Airway patent, respirations nonlabored. Clear to auscultation bilaterally, no rales, rhonchi, wheezing. CARDIOVASCULAR: Regular rate and rhythm without murmurs rubs or gallops. ABDOMINAL: Soft, nontender, nondistended, normal bowel sounds MUSCULOSKELETAL: Moves all extremities. Strength/ROM intact, No edema, No calf tenderness. NEURO: Alert. Cranial nerves II through XII intact. Good gait. Good coordination. No meningeal signs SKIN: Warm, dry. Normal Color PSYCHIATRIC: Normal affect/mood. Course Course Emergency Course: Patient does feel improved with treatment. Patient states the headache was resolved with Benadryl Compazine and IV fluids. Patient did have an adverse reaction to the Compazine but this was resolved with additional Benadryl. Patient states she feels improved and is requesting disc
[2022-02-28 17:25] LABS: Basophils Percent Auto 0.5 % (0.2-1.2); Eosinophils Absolute Auto 0.1 K/mm3 (0-0.3); Eosinophils Percent Auto 1.1 % (0-4.4); Hematocrit 36.6 % (37.0-47.0); Immature Granulocyte Absolute 0.03 K/mm3 (0.00-0.031); Immature Granulocyte Percent A 0.4 % (0-0.5); Lymphocytes Absolute Auto 1.79 K/mm3 (0.9-3.2); Lymphocytes Percent Auto 21.6 % (18.3-44.2); Mean Corpuscular HGB Conc 32.8 g/dl (32-36); Mean Corpuscular Hemoglobin 31.3 pg (26-34); Mean Corpuscular Volume 95.3 fl (80-100); Mean Platelet Volume 8.7 fl (7.4-10.4); Monocytes Absolute Auto 0.5 K/mm3 (0.1-0.6); Monocytes Percent Auto 5.6 % (2.6-8.5); Neutrophils Absolute Auto 5.9 K/mm3 (1.3-6.7); Neutrophils Percent Auto 70.8 % (45.5-73.1); Platelet Count Result 249 k/mm3 (150-375); Red Blood Count 3.84 M/mm3 (4.2-5.4); Red Cell Distribution Width 12.2 % (11.5-14.5); White Blood Count 8.3 K/mm3 (4.5-10.0)
[2022-02-28 17:26] LABS: Appearance Urine Clear (Clear); Bilirubin Urine Negative (Negative); Blood Urine 2+ (Negative); Color Urine Yellow (Yellow); Glucose Urine UA Negative (Negative); Ketones Urine Negative (Negative); Leukocyte Esterase Ur Negative LEU/UL (Negative); Nitrate Urine Negative (Negative); Protein Urine Negative (Negative); Specific Grav Ur 1.025 (1.001-1.035); Urobilinogen Urine 0.2 mg/dL (<2.0)
[2022-02-28] MEDS: PROCHLORPERAZINE EDISYLATE 10 MG/2 ML VIAL IV PUSH (17:30)
[2022-02-28] MEDS: SODIUM CHLORIDE 0.9% IV 1,000 ML 999 ML IV CONT (17:30)
[2022-02-28] MEDS: diphenhydrAMINE HCl INJ 50 MG/ML VIAL 25 MG IV PUSH ×2 (17:30→17:52)
[2022-02-28 17:36] LABS: Lactic Acid Reflex 0.6 mmol/L (0.7-2.0)
[2022-02-28 17:37] LABS: Alanine Aminotransferase 17 U/L (4-35); Albumin Level 4.1 g/dL (3.5-5.1); Alkaline Phosphatase 59 U/L (38-126); Anion Gap 7 mmol/L (8-16); Aspartate Amino Transferase 22 U/L (14-36); Bilirubin,Total 0.2 mg/dL (0.2-1.3); Blood Urea Nitrogen 7 mg/dL (7-17); Calcium 8.7 mg/dL (8.4-10.2); Carbon Dioxide 23 mmol/L (22-30); Chloride 103 mmol/L (98-107); Estimated CRCL calculation 132 ml/min; Estimated Glomerular Filt Rate > 60; Glucose 86 mg/dL (65-110); Potassium 3.6 mmol/L (3.4-5.0); Sodium 133 mmol/L (137-145)
[2022-02-28 17:38] LABS: Add Urine Microscopic? YES
[2022-02-28 17:40] LABS: Mucus Urine Rare /lpf; RBC Urine 51-75 /hpf (0-2); Squamous Epithelial Cell Urine Few /hpf (Few); WBC Urine 0-3 /hpf
[2022-02-28 18:49] VITALS: BP 107/74; PULSE 102; RESP 20; O2SAT 98
== END 2022-02-28 18:51 | disposition home or self-care (01) ==
PROVIDERS: Emergency Provider Emergency Medicine; PCP Emergency Medicine
DX: O26.891 Other specified pregnancy related conditions, first trimester (principal); R51.9 Headache, unspecified; O99.511 Diseases of the respiratory system complicating pregnancy, first trimester; J45.909 Unspecified asthma, uncomplicated; O99.331 Smoking (tobacco) complicating pregnancy, first trimester; F17.210 Nicotine dependence, cigarettes, uncomplicated; Z87.442 Personal history of urinary calculi; Z3A.12 12 weeks gestation of pregnancy
CPT/HCPCS: 36415; 80053; 81001; 83605; 85025; 96365; 96375; 99284; J0131; J0780; J1200; J7030

== ENCOUNTER 2022-03-24 10:36 | Emergency (ER) | payer OTHER, SELFPAY ==
[2022-03-24 10:48] VITALS: BP 92/59; PULSE 114; RESP 18; TEMP 36.4; O2SAT 99
[2022-03-24 11:36] VITALS: O2SAT 98
[2022-03-24 11:40] VITALS: BP 120/100; PULSE 105; RESP 20; O2SAT 98
[2022-03-24 11:41] LABS: Influenza A QL RT-PCR Negative (Negative); Influenza B QL RT-PCR Negative (Negative); SARS-CoV-2 RNA PCR Negative
--- NOTE | 2022-03-24 12:07 | ED.GENADULT ---
HPI - General Adult General Chief complaint: Upper Respiratory Infection Stated complaint: cold symptoms/diff breathing/preg/cramping Time Seen by Provider: 03/24/22 11:39 History of Present Illness HPI narrative: 26-year-old female presenting to the emergency department for evaluation of 2 weeks of sore throat, nasal congestion and cough. Patient is approximately 16 weeks does follow with Dr. Watkins. Patient states that she was having the symptoms for approximately 2 weeks. Patient did have negative COVID testing at home. Patient was evaluated by her primary care physician and was started on amoxicillin on the . Patient has been taking this 3 times a day. Patient states that while the cough has improved her nasal congestion and sore throat has continued to worsen. Patient does report some lower abdominal cramping and some dizziness and lightheadedness. Patient does report decreased p.o. intake. Patient denies any vaginal bleeding vaginal discharge. Patient is with no complications of her Related Data Allergies Allergy/AdvReac Type Severity Reaction Status Date / Time morphine Allergy Unknown Hives Verified 02/28/22 15:51 nitrofurantoin Allergy Swelling Verified 02/28/22 15:51 [From Macrobid] of Lip/Tongue/Throat prochlorperazine AdvReac Palpitation Verified 02/28/22 18:22 [From Compazine] s Review of Systems Review of Systems: CONSTITUTIONAL: Denies fever, chills, or sweats. EYES: Denies visual changes, redness, or discharge. ENT: Denies rhinorrhea, congestion, sore throat, or otalgia. CARDIOVASCULAR: Denies chest pain, palpitations, or edema. RESPIRATORY: Some cough that is improving with no associated shortness of breath. GASTROINTESTINAL: See HPI GENITOURINARY: Denies dysuria or hematuria. SKIN: Denies rash or itching. MUSCULOSKELETAL: Denies back pain, joint pain, or myalgia. NEUROLOGIC: Denies headache, numbness, or weakness. [facility] Past Medical History Medical History Anxiety Asthma Kidney stones Surgical History Surgical History History of appendectomy History of tonsillectomy Family History Family History Mother Family history of cardiovascular disease Sibling Diabetes mellitus Grandparent Diabetes mellitus Social History Social History Years smoked: 12 Smoking status: Current every day smoker Second hand tobacco smoke exposure: Yes Alcohol intake: never Substance use: current Last use: 12/07/19 Gender identity (if verbalized by the patient): Female Spiritual care concerns: No Exam Narrative: APPEARANCE: Well appearing, no pain, no distress, well-nourished. HEAD: normocephalic, atraumatic. EYES: PERRLA/EOMI, conjunctivae clear. NOSE: Normal no drainage EARS:TMS clear with good light reflex. THROAT: Pharynx clear, no exudate. Mild posterior erythema NECK: Supple. No adenopathy, no masses. RESPIRATORY: Airway patent, respirations nonlabored. Clear to auscultation bilaterally, no rales, rhonchi, wheezing. CARDIOVASCULAR: Regular rate and rhythm without murmurs rubs or gallops. ABDOMINAL: Soft, nontender, nondistended, normal bowel sounds MUSCULOSKELETAL: Moves all extremities. Strength/ROM intact, No edema, No calf tenderness. NEURO: Alert. Cranial nerves II through XII intact. Grossly intact SKIN: Warm, dry. Normal Color Course Course Emergency Course: Patient reports she does feel improved with treatment. Patient states after rehydration that she has no more abdominal cramping. Patient's influenza and COVID were negative. Patient is currently on antibiotics. Lungs are clear to auscultation. Vital Signs Vital signs: Vital Signs Temperature 97.5 F L 03/24/22 10:48 Pulse Rate 114 H 03/24
[2022-03-24] MEDS: SODIUM CHLORIDE 0.9% IV 1,000 ML 999 ML IV CONT (12:54)
[2022-03-24 12:55] VITALS: BP 95/61; PULSE 91; RESP 20; O2SAT 98
[2022-03-24 13:37] VITALS: BP 102/70; PULSE 88; RESP 18; O2SAT 100
== END 2022-03-24 13:38 | disposition home or self-care (01) ==
PROVIDERS: Physician Assistant; Emergency Provider Emergency Medicine; PCP Emergency Medicine
DX: O98.512 Other viral diseases complicating pregnancy, second trimester (principal); B34.9 Viral infection, unspecified; R05.9 Cough, unspecified; O99.282 Endocrine, nutritional and metabolic diseases complicating pregnancy, second trimester; E86.0 Dehydration; Z20.822 Contact with and (suspected) exposure to COVID-19; O99.512 Diseases of the respiratory system complicating pregnancy, second trimester; J45.909 Unspecified asthma, uncomplicated; O99.332 Smoking (tobacco) complicating pregnancy, second trimester; F17.200 Nicotine dependence, unspecified, uncomplicated; Z3A.16 16 weeks gestation of pregnancy; Z87.442 Personal history of urinary calculi
CPT/HCPCS: 87081; 87502; 87880; 99283; C9803; J7030; U0003; U0005

== ENCOUNTER 2022-05-27 15:26 | Observation (INO) | payer OTHER, SELFPAY ==
[2022-05-27] VITALS (13 sets, daily range): BP systolic 95–109; BP diastolic 58–61; PULSE 87–109; O2SAT 95–100; BMI 31.4
--- NOTE | 2022-05-27 16:50 | PC.NURSE ---
Spoke to Dr. Platt at 1602. Patient here for SOB, dizziness, leg cramping. NST reactive. No contractions noted. Orders to send patient to ED for further evaluation. 1645 : Spoke to Dr Platt. Upon discharging patient, she states that she would like to go to [facility] ED in [place] due to proximity to home. Per Dr. Platt, ok to discharge patient to take herself to ED.
--- NOTE | 2022-05-27 16:55 | PC.NURSE ---
1624 : NST reactive. FHT baseline 135, moderate variablity, accels present, no decels.
--- NOTE | 2022-06-16 09:16 | PM.OBTRLD ---
OB - Triage/Final Diagnosis Visit Information Comments/Additional reasons for admission: I have assessed the risk for this patient, Minda Galvin, and determined that she would benefit from observation care. Final Diagnosis (1) Shortness of breath during : Code(s): O99.891 - Other specified diseases and conditions complicating ; R06.02 - Shortness of breath Status: Acute
== END 2022-05-27 16:34 | disposition other institution (70) ==
PROVIDERS: Admitting Provider Obstetrics & Gynecology; PCP Emergency Medicine; Visit Provider Obstetrics & Gynecology
DX: O99.512 Diseases of the respiratory system complicating pregnancy, second trimester (principal); R06.02 Shortness of breath; O99.412 Diseases of the circulatory system complicating pregnancy, second trimester; R00.2 Palpitations; Z3A.25 25 weeks gestation of pregnancy
CPT/HCPCS: G0378; G0379

== ENCOUNTER 2022-05-30 18:40 | Observation (INO) | payer OTHER, SELFPAY ==
[2022-05-30] VITALS (19 sets, daily range): BP systolic 93; BP diastolic 51; PULSE 62–137; TEMP 36.6; O2SAT 89–100; BMI 31.4
[2022-05-30 19:32] LABS: Appearance Urine Slightly Cloudy (Clear); Bilirubin Urine Negative (Negative); Blood Urine 2+ (Negative); Color Urine Yellow (Yellow); Glucose Urine UA Negative (Negative); Ketones Urine 2+ mg/dL (Negative); Leukocyte Esterase Ur Negative LEU/UL (Negative); Nitrate Urine Negative (Negative); Protein Urine Negative (Negative); Specific Grav Ur 1.015 (1.001-1.035); Urobilinogen Urine 0.2 mg/dL (<2.0)
[2022-05-30 19:38] LABS: Amorphous Sediment Urine Few; Bacteria Urine Trace /hpf; Squamous Epithelial Cell Urine Moderate /hpf (Few); WBC Urine 0-3 /hpf
[2022-05-30 19:40] LABS: Add Urine Microscopic? YES
--- NOTE | 2022-05-30 19:52 | P.PNOB_ITS ---
OB - Triage/Final Diagnosis Visit Information Date of evaluation: 05/30/22 Reason for evaluation: other (back pain) Comments/Additional reasons for admission: I have assessed the risk for this patient, Minda Galvin, and determined that she would benefit from observation care. Evaluation Laboratory results: Laboratory Tests 05/30/22 19:16 Urine Color Yellow Urine Appearance Slightly cloudy Urine pH 6.0 Ur Specific [place] 1.015 Urine Protein Negative Urine Glucose (UA) Negative Urine Ketones 2+ H Ur Blood (Man) 2+ H Urine Nitrate Negative Urine Bilirubin Negative Urine Urobilinogen 0.2 Leukocyte Esterase Rfl Negative Urine RBC 6-10 H Urine WBC 0-3 Ur Squamous Epith Cells Moderate H Amorphous Sediment Few H Urine Bacteria Trace Vital signs: Vital Signs - 24 hr 05/30/22 18:45 05/30/22 18:47 05/30/22 18:52 Pulse Rate 137 H Blood Pressure 93/51 L Pulse Oximetry 99 100 05/30/22 18:57 05/30/22 19:02 05/30/22 19:05 Pulse Rate Blood Pressure Pulse Oximetry 100 99 90 05/30/22 19:10 05/30/22 19:15 05/30/22 19:20 Pulse Rate Blood Pressure Pulse Oximetry 100 89 L 99 05/30/22 19:25 05/30/22 19:30 05/30/22 19:35 Pulse Rate Blood Pressure Pulse Oximetry 100 97 96 05/30/22 19:40 05/30/22 19:45 05/30/22 19:50 Pulse Rate Blood Pressure Pulse Oximetry 98 98 98
[2022-05-30] MEDS: ACETAMINOPHEN 500 MG TABLET 1000 MG PO (19:57)
[2022-05-30] MEDS: ONDANSETRON HCL ODT 4 MG TABLET (20:05)
[2022-05-30] MEDS: CYCLOBENZAPRINE HCL 10 MG TABLET PO (20:05)
== END 2022-05-30 22:29 | disposition home or self-care (01) ==
PROVIDERS: Admitting Provider Student in an Organized Health Care Education/Training Program; PCP Emergency Medicine; Visit Provider Student in an Organized Health Care Education/Training Program
DX: O26.892 Other specified pregnancy related conditions, second trimester (principal); M54.9 Dorsalgia, unspecified; Z3A.26 26 weeks gestation of pregnancy
CPT/HCPCS: 81001; 84112; A9270; G0378; G0379

== ENCOUNTER 2022-07-30 17:11 | Emergency (ER) | payer OTHER, SELFPAY | END 2022-07-30 17:13 | disposition left against medical advice (07) | PROVIDERS: PCP Emergency Medicine | DX: Z53.21 Procedure and treatment not carried out due to patient leaving prior to being seen by health care provider (principal) | CPT/HCPCS: 99199 ==

== ENCOUNTER 2022-07-31 11:15 | Outpatient (CLI) | payer OTHER, SELFPAY ==
--- NOTE | 2022-07-31 | ECG_ITS ---
Measurements Intervals [place] Rate: 81 P: 53 VT: 136 QRS: 21 QRSD: 86 T: -7 QT: 370 QTc: 430 Interpretive Statements SINUS RHYTHM COMPARED TO ECG 01/28/2022 11:39:23 NO SIGNIFICANT CHANGES Electronically Signed On 07-31-2022 17:29:42 CDT by Arley Roy M.D.
== END 2022-07-31 11:16 | disposition home or self-care (01) ==
LOC: ANHCARD 11:21
PROVIDERS: PCP Emergency Medicine; Visit Provider Obstetrics & Gynecology
DX: Z34.90 Encounter for supervision of normal pregnancy, unspecified, unspecified trimester (principal); R00.2 Palpitations; Z3A.00 Weeks of gestation of pregnancy not specified
CPT/HCPCS: 93005

== ENCOUNTER 2022-08-16 15:26 | Observation (INO) | payer OTHER, SELFPAY ==
[2022-08-16] MEDS: ACETAMINOPHEN 500 MG TABLET 1000 MG PO (17:05)
--- NOTE | 2022-09-11 12:34 | PM.OBTRLD ---
OB - Triage/Final Diagnosis Visit Information Comments/Additional reasons for admission: I have assessed the risk for this patient, Minda Galvin, and determined that she would benefit from observation care. Final Diagnosis (1) False labor: Code(s): O47.9 - False labor, unspecified Status: Acute
== END 2022-08-16 17:15 | disposition home or self-care (01) ==
PROVIDERS: Admitting Provider Obstetrics & Gynecology; PCP Emergency Medicine; Visit Provider Obstetrics & Gynecology
DX: O47.1 False labor at or after 37 completed weeks of gestation (principal); Z3A.37 37 weeks gestation of pregnancy
CPT/HCPCS: 84112; A9270; G0378; G0379

== ENCOUNTER 2022-08-22 19:15 | Observation (INO) | payer OTHER, SELFPAY ==
[2022-08-22 19:30] VITALS: BMI 35.4
[2022-08-22 20:25] VITALS: BP 106/61; PULSE 88
[2022-08-22 20:31] VITALS: BP 107/60; PULSE 79
[2022-08-22 21:36] VITALS: BP 109/62; PULSE 90
[2022-08-22 21:46] VITALS: BP 104/58; PULSE 84
--- NOTE | 2022-08-25 16:10 | PM.OBTRLD ---
OB - Triage/Final Diagnosis Visit Information Reason for evaluation: threatened labor Comments/Additional reasons for admission: I have assessed the risk for this patient, Minda Galvin, and determined that she would benefit from observation care.
== END 2022-08-22 22:00 | disposition home or self-care (01) ==
PROVIDERS: Admitting Provider Obstetrics & Gynecology; PCP Emergency Medicine; Visit Provider Obstetrics & Gynecology
DX: O47.1 False labor at or after 37 completed weeks of gestation (principal); Z3A.37 37 weeks gestation of pregnancy
CPT/HCPCS: 84112; G0378; G0379

== ENCOUNTER 2022-09-02 04:54 | Inpatient (IN) | payer OTHER, SELFPAY ==
[2022-09-02] VITALS (146 sets, daily range): BP systolic 62–126; BP diastolic 33–103; PULSE 60–197; RESP 16–18; TEMP 36.6–37.6; O2SAT 97–100
[2022-09-02 06:01] LABS: Basophils Percent Auto 0.5 % (0.2-1.2); Eosinophils Absolute Auto 0.1 K/mm3 (0-0.3); Eosinophils Percent Auto 0.7 % (0-4.4); Hematocrit 33.8 % (37.0-47.0); Hemoglobin 10.9 g/dL (12.0-15.0); Immature Granulocyte Absolute 0.05 K/mm3 (0.00-0.031); Immature Granulocyte Percent A 0.6 % (0-0.5); Lymphocytes Absolute Auto 1.57 K/mm3 (0.9-3.2); Lymphocytes Percent Auto 18.1 % (18.3-44.2); Mean Corpuscular HGB Conc 32.2 g/dl (32-36); Mean Corpuscular Hemoglobin 29.6 pg (26-34); Mean Corpuscular Volume 91.8 fl (80-100); Monocytes Absolute Auto 0.7 K/mm3 (0.1-0.6); Monocytes Percent Auto 7.5 % (2.6-8.5); Neutrophils Absolute Auto 6.3 K/mm3 (1.3-6.7); Neutrophils Percent Auto 72.6 % (45.5-73.1); Platelet Count Result 254 k/mm3 (150-375); Red Blood Count 3.68 M/mm3 (4.2-5.4); Red Cell Distribution Width 13.5 % (11.5-14.5); White Blood Count 8.7 K/mm3 (4.5-10.0)
[2022-09-02] MEDS: LACTATED RINGERS 1,000 ML 125 ML IV CONT ×4 (06:21→11:46)
[2022-09-02] MEDS: OXYTOCIN 30 UNITS/NS 500 ML 30 UNITS/500 ML BAG IV CONT (06:21)
--- NOTE | 2022-09-02 08:45 | PM.IMHP ---
H&P: HPI History of Present Illness Date/Time: 09/02/22844 Chief Complaint: Here for induction of labor. Narrative: 27 at 39 3/7 weeks here for induction of labor. GBS neg. EFW 9.5#. First baby was 9#1oz. Good movement. No leakage of fluid or vaginal bleeding. Review of Systems Review of Systems: All systems reviewed & are unremarkable except as noted in HPI and below PMFSH Past Medical History Medical History Anxiety Asthma Kidney stones Surgical History Surgical History History of appendectomy History of tonsillectomy Family History Family History Mother Family history of cardiovascular disease Colon cancer Sibling Diabetes mellitus Grandparent Diabetes mellitus Cerebrovascular accident Social History Social History Years smoked: 12 Smoking status: Never smoker Second hand tobacco smoke exposure: No Alcohol intake: never Substance use: never Last use: 12/07/19 Has the Lack of Transportation Kept You From Medical Appointments or From Getting Medications?: No Within the Past 12 Months, Were You Worried Whether Your Food Would Run Out Before You Got Money to Buy More?: Never True What is Your Housing Situation Today?: I Have Housing Are You Worried That in the Next 2 Months, You May Not Have Your Own Housing to Live In?: No Do You Have Trouble Paying Your Heating Or Electricity Bill?: No Do You Have Trouble Paying For Medicines?: No Are You Currently Unemployed and Looking for Work?: No Highest Level of Education Completed: High School Diploma/GED Do You Have Trouble With Childcare or the Care of a Family Member?: No Gender identity (if verbalized by the patient): Female Spiritual care concerns: No Meds Home Medications and Allergies Home Medications Medication Instructions Recorded Confirmed Type famotidine 20 mg tablet (Pepcid) 20 mg PO DAILY 08/16/22 08/16/22 History prenat.vits,mike,vws-emjf-eiscj 1 tablet PO DAILY 08/16/22 08/16/22 History fluoxetine 20 mg capsule 20 mg PO DAILY 09/02/22 09/02/22 History Allergies Allergy/AdvReac Type Severity Reaction Status Date / Time morphine Allergy Unknown Hives Verified 09/02/22 05:56 ketorolac [From Toradol] Allergy Palpitation Verified 09/02/22 05:56 s nitrofurantoin Allergy Swelling Verified 09/02/22 05:56 [From Macrobid] of Lip/Tongue/Throat prochlorperazine AdvReac Palpitation Verified 09/02/22 05:56 [From Compazine] s Vital Signs Vital Signs - 24 hr 09/02/22 05:25 09/02/22 05:55 09/02/22 06:00 Temperature Pulse Rate 94 89 Blood Pressure 117/72 119/71 Pulse Oximetry Oxygen Delivery Room Air 09/02/22 06:15 09/02/22 06:30 09/02/22 06:22 Temperature 36.8 C Pulse Rate 96 86 Blood Pressure 116/78 120/73 Pulse Oximetry Oxygen Delivery 09/02/22 06:45 09/02/22 07:00 09/02/22 07:15 Temperature Pulse Rate 89 93 86 Blood Pressure 111/70 117/71 118/71 Pulse Oximetry Oxygen Delivery 09/02/22 07:30 09/02/22 07:45 09/02/22 08:30 Temperature Pulse Rate 90 96 84 Blood Pressure 121/72 104/72 104/67 Pulse Oximetry Oxygen Delivery 09/02/22 08:45 09/02/22 09:08 09/02/22 09:10 Temperature Pulse Rate 83 126 H Blood Pressure 115/77 119/77 Pulse Oximetry 97 Oxygen Delivery 09/02/22 09:12 09/02/22 09:13 09/02/22 09:15 Temperature Pulse Rate 127 H 96 Blood Pressure 113/74 126/64 Pulse Oximetry 99 Oxygen Delivery 09/02/22 09:18 09/02/22 09:21 09/02/22 09:22 Temperature Pulse Rate 98 90 77 Blood Pressure 106/66 100/33 L 101/56 L Pulse Oximetry 100 Oxygen Delivery 09/02/22 09:23 09/02/22 09:24 09/02/22 09:27 Temperature Pulse Rate 77 75 Blood Pr
--- NOTE | 2022-09-02 09:23 | WPDANESEPPF ---
Anes - Initial Pre Proc Eval Date/Time: 09/02/22 09:23 Surgeon: Shmuel Platt MD Pre Op Diagnosis: IOL Patient Data Age: 27 Gender: F Height: Weight: Last Vital Signs Temp 36.8 C 09/02/22 06:22 Pulse 77 09/02/22 09:22 BP 101/56 L 09/02/22 09:22 Pulse Ox 100 09/02/22 09:18 O2 Del Method Room Air 09/02/22 05:25 Allergies Allergy/AdvReac Type Severity Reaction Status Date / Time morphine Allergy Unknown Hives Verified 09/02/22 05:56 ketorolac [From Toradol] Allergy Palpitation Verified 09/02/22 05:56 s nitrofurantoin Allergy Swelling Verified 09/02/22 05:56 [From Macrobid] of Lip/Tongue/Throat prochlorperazine AdvReac Palpitation Verified 09/02/22 05:56 [From Compazine] s Home Medications Medication Instructions Recorded Confirmed Type famotidine 20 mg tablet (Pepcid) 20 mg PO DAILY 08/16/22 08/16/22 History prenat.vits,mike,rmh-qxns-limcm 1 tablet PO DAILY 08/16/22 08/16/22 History fluoxetine 20 mg capsule 20 mg PO DAILY 09/02/22 09/02/22 History Laboratory Tests 09/02/22 09/02/22 09/02/22 05:48 05:48 05:48 WBC 8.7 K/mm3 K/mm3 (4.5-10.0) RBC 3.68 M/mm3 L M/mm3 (4.2-5.4) Hgb 10.9 g/dL L g/dL (12.0-15.0) Hct 33.8 % L % (37.0-47.0) MCV 91.8 fl fl (80-100) MCH 29.6 pg pg (26-34) MCHC 32.2 g/dl g/dl (32-36) RDW 13.5 % % (11.5-14.5) Plt Count 254 k/mm3 k/mm3 (150-375) MPV 10.0 fl fl (7.4-10.4) Immature Gran % (Auto) 0.6 % H % (0-0.5) Neut % (Auto) 72.6 % % (45.5-73.1) Lymph % (Auto) 18.1 % L % (18.3-44.2) Placer % (Auto) 7.5 % % (2.6-8.5) Eos % (Auto) 0.7 % % (0-4.4) Baso % (Auto) 0.5 % % (0.2-1.2) Lymph # (Auto) 1.57 K/mm3 K/mm3 (0.9-3.2) Placer # (Auto) 0.7 K/mm3 H K/mm3 (0.1-0.6) Eos # (Auto) 0.1 K/mm3 K/mm3 (0-0.3) Baso # (Auto) 0.0 K/mm3 K/mm3 (0.0-0.1) Abs Immat Gran (auto) 0.05 K/mm3 H K/mm3 (0.00-0.031) Absolute Neuts (auto) 6.3 K/mm3 K/mm3 (1.3-6.7) Absolute Nucleated RBC 0.0 K/mm3 K/mm3 (0.0-0.012) Nucleated RBC % 0.0 % % (0.0-0.2) RPR Pending Blood Type A Positive Antibody Screen Negative Patient hx anesthesia problems: none Family hx anesthesia problems: none Results Review: All pre-operative results and documents have been reviewed as part of the pre-operative evaluation. [facility] Past Medical History Medical History Anxiety Asthma Kidney stones Surgical History Surgical History History of appendectomy History of tonsillectomy Family History Family History Mother Family history of cardiovascular disease Colon cancer Sibling Diabetes mellitus Grandparent Diabetes mellitus Cerebrovascular accident Social History Social History Years smoked: 12 Smoking status: Never smoker Second hand tobacco smoke exposure: No Alcohol intake: never Substance use: never Last use: 12/07/19 Has the Lack of Transportation Kept You From Medical Appointments or From Getting Medications?: No Within the Past 12 Months, Were You Worried Whether Your Food Would Run Out Before You Got Money to Buy More?: Never True What is Your Housing Situation Today?: I Have Housing Are You Worried That in the Next 2 Months, You May Not Have Your Own Housing to Live In?: No Do You Have Trouble Paying Your Heating Or Electricity Bill?: No Do You Have Trouble Paying For Medicines?: No Are You Currently Unemployed and Looking for Work?: No Highest Level of Education Completed: High School Diploma/GED Do You
[2022-09-02] MEDS: ONDANSETRON INJ 4 MG/2 ML VIAL IV PUSH (10:03)
[2022-09-02] MEDS: CALCIUM CARBONATE (TUMS) 500 MG (200 MG ELEMENTAL) PO (12:50)
[2022-09-02] MEDS: FAMOTIDINE 20 MG/2 ML VIAL IV PUSH (12:50)
--- NOTE | 2022-09-02 13:26 | PM.OBPNLAB ---
Pain Control Date/time seen: 09/02/22 13:26 Comments: Comfortable with epidural. AVSS NST reactive TOCO: contractions every 2-3 min Cervix 8/80/-2. Continue labor.
--- NOTE | 2022-09-02 16:02 | PM.OBPRVD ---
OB - Delivery Note Procedure Delivery date: 09/02/22 Procedure: Induction of labor with Induction method: Per Pitocin Protocol Delivery monitor: External FHT, External Uterine and Internal Uterine Route of delivery: Laceration Description: None Specimen: Yes (cord blood) Quantitative Blood Loss (ml): 120 Anesthesia type: Epidural Disposition: PACU Complications: Shoulder dystocia Narrative: 27 y/o at 39 3/7 weeks gestation who presented to the hospital for induction of labor. Oxytocin was administered intravenously. Amniotomy was performed with return of clear fluid. She received an epidural for pain control. Her labor progressed and her cervix dilated completely. She pushed with good effort and delivered the 's head to the perineum. A loose nuchal cord was reduced. A shoulder dystocia was encountered. Traction on the head and fundal pressure were strictly avoided. Jane maneuver was employed. The posterior (right) shoulder was grasped and rotated in a clockwise fashion. The anterior shoulder reduced and the body delivered. The nose and mouth were bulb suctioned. After a delay, the cord was clamped and cut. The was handed off the field. Cord blood was collected. The placenta delivered spontaneously and was grossly normal in appearance. The usual 3 vessel cord was noted. The perineum was free of laceration. Needle and instrument counts were correct. The patient was taken to recovery room in stable condition. The went to the nursery in stable condition. I was present and scrubbed for the entire delivery. [place] Baby Date of : 09/02/22 Time of : 15:51 Weeks of gestation at delivery: 39 Infant gender: Male Weight (pounds): 9 Weight (ounces): 6 presentation: vertex position: Right Occiput Anterior Placenta delivery description: Spontaneous and Normal Configuration Cord Vessel Description: 3 Vessels and Nuchal Cord (x1) score one minute: 3 score five minutes: 8
--- NOTE | 2022-09-02 16:02 | PM.OBDSVD ---
DS: Admitting Diagnosis Discharge Date 09/03/22 Admitting Diagnosis IUP at term DS: Discharge Diagnosis Discharge Diagnosis (1) (normal spontaneous vaginal delivery): Code(s): O80 - Encounter for full-term uncomplicated delivery Status: Acute OB - DS: Summary OB Procedures : None OB Procedures Intrapartum: Spontaneous Vag Delivery OB Procedures: : None Time Spent with Patient Time attestation: Total time spent providing and/or coordinating discharge services: DS: Data Data Completed and Pending Labs on day of discharge: Labs from last 24 hours 09/02/22 09/02/22 09/02/22 05:48 05:48 05:48 WBC 8.7 RBC 3.68 L Hgb 10.9 L Hct 33.8 L MCV 91.8 MCH 29.6 MCHC 32.2 RDW 13.5 Plt Count 254 MPV 10.0 Immature Gran % (Auto) 0.6 H Neut % (Auto) 72.6 Lymph % (Auto) 18.1 L [place] % (Auto) 7.5 Eos % (Auto) 0.7 Baso % (Auto) 0.5 Lymph # (Auto) 1.57 [place] # (Auto) 0.7 H Eos # (Auto) 0.1 Baso # (Auto) 0.0 Abs Immat Gran (auto) 0.05 H Absolute Neuts (auto) 6.3 Absolute Nucleated RBC 0.0 Nucleated RBC % 0.0 RPR Pending Blood Type A Positive Antibody Screen Negative Discharge Plan Discharge Attending physician on discharge: Shmuel Platt Discharging Clinician: Shmuel Platt Patient Disposition: Home, Self-Care Activity: pelvic rest Diet: regular Discharge Instructions: Call or return if temperature above 100.4? F, increased abdominal pain, increased vaginal bleeding or any new problems. Stand Alone Forms: General Discharge Information Follow-up/Referrals: Shmuel Platt MD [Physician] - 6 Weeks Discharge Medications: New ferrous sulfate 325 mg (65 mg iron) tablet 325 mg PO DAILY Qty: 30 0RF ibuprofen 600 mg tablet 600 mg PO Q6H PRN (Reason: cramps) Qty: 30 0RF Continued famotidine [Pepcid] 20 mg Tablet 20 mg PO DAILY prenat.vits,mike,wof-qfqg-yfsww Tablet 1 tablet PO DAILY fluoxetine 20 mg capsule 20 mg PO DAILY Date of admission: 09/02/22 04:54 Primary Care Provider: Chuckie Murray Admitting Provider: Shmuel Platt Attending physician on admission: Shmuel Platt Condition: Stable
[2022-09-02] MEDS: OXYTOCIN 30 UNITS/NS 500 ML 30 UNITS/500 ML BAG 125 UNITS IV CONT (16:28)
[2022-09-02] MEDS: WITCH HAZEL 40 PADS 1 PAD TOPICAL (17:41)
[2022-09-02] MEDS: IBUPROFEN 600 MG TABLET PO (17:41)
--- NOTE | 2022-09-02 18:30 | OBPPTRN ---
Patient transferred to post room #292 via W/C. Support person present. Oriented to unit, room, information board, rooming in, admission packet and security measures. Patient verbalizes understanding.
[2022-09-03] MEDS: IBUPROFEN 600 MG TABLET PO ×2 (03:57→11:05)
[2022-09-03 04:00] VITALS: BP 95/55; PULSE 74; RESP 16; TEMP 36.8
[2022-09-03 05:14] LABS: Hematocrit 28.9 % (37.0-47.0); Hemoglobin 9.2 g/dL (12.0-15.0)
[2022-09-03 07:25] VITALS: BP 98/59; PULSE 77; TEMP 36.6; O2SAT 99
[2022-09-03] MEDS: POLYSACCHARIDE IRON COMPLEX 150 MG CAPSULE PO ×2 (08:25→16:59)
[2022-09-03] MEDS: MULTIVIT/MIN/PREN/FOL AC/IRON TABLET 1 TAB PO (08:26)
[2022-09-03] MEDS: FLUoxetine HCL 20 MG CAPSULE PO (08:26)
[2022-09-03] MEDS: ACETAMINOPHEN 325 MG TABLET 650 MG PO ×2 (08:26→16:59)
[2022-09-03] MEDS: DOCUSATE SODIUM 100 MG CAPSULE PO ×2 (08:26→16:59)
--- NOTE | 2022-09-03 09:41 | PC.NURSE ---
On 09/03/22, the student, Amy Butler, provided care and completed [facility] documentation on this patient. I have reviewed the student's documentation and agree with the findings.
[2022-09-03] MEDS: TETANUS,DIPHTHERIA,AC PERTUSSIS ADULT (0.5 ML) BOOSTRIX IM (11:06)
--- NOTE | 2022-09-03 12:38 | PC.NURSE ---
[id number] Mother led the conversation with her experience and plan to feed her so far and her ability to independently latch but states her nipples are sore, she is unable to get her infant to open the mouth wide, and she breastfed her other child for a few months. Reminded mother to use good handwashing technique to prevent infection. Mother is feeding appropriately for growth of infant and understands stimulating to eat if needed. Since mother just finished her infant, and she is going home today we reviewed mark educational points with discussion, demonstration with tools, and encouraged mother to wait for the big, open, wide gape and not to reinforce the small mouth opening shoving the nipple into his mouth, watch the latching and positioning videos on the website while is sleeping. Mother did a teach back using demonstration understanding the sandwich holding of the breast to help her infant get more breast into his mouth. is sleeping and is scheduled to be circumcised soon. Mother was encouraged of the benefits of skin to skin (unwrapping infant and placing vertically on her chest), responsive feeding and how to watch for early feeding signs, frequency of feeding on demand about every 8-12 times in 24 hours (every 2-3 hours), milk production, duration of feeding, signs of adequate intake/output and how to record on the feeding sheet. Reviewed positioning and ear, shoulder, hip alignment, supporting the breast, asymmetrical latch (off-center), and leading with the chin with a big open side gape. Nipple care reviewed with optimal latch and good positioning. Reminding mother of comfort measures of healing with a warm and wet washcloth to rinse breast, then leave open to air-dry as needed. Reviewed good handwashing when or touching the breast/nipples to prevent infection. Resources used to facilitate learning were used with the tool and mom/baby guide. Mother voiced understanding of responsive feedings, stimulating with skin to skin, hand expressed colostrum, massage touch, talking to infant to encourage if it has been 2 -3 hours since the start of the last , to call if does not latch or there is discomfort with . Reinforced understanding of milk production, transition of milk, signs of adequate intake, prevention/relief of engorgement, responsive after visualizing feeding cues, the different methods of stimulating infant to breastfeed 2-3 hours after the start of the last feeding, community resources, medication information reviewed per [employer] and when to call a provider using the resource of the mom and baby guide/[facility] website. Mother voiced understanding of the education shared. Reported to the primary RN. Mother plans to unwrap, stimulate , place skin to skin and call for assistance when it has been 2-3 hours since the beginning of the start of the last breastfeed.
[2022-09-03 13:00] VITALS: BP 114/62; PULSE 84; RESP 16; TEMP 37.1; O2SAT 99
--- NOTE | 2022-09-03 13:24 | PC.NURSE ---
[id number] Consulted with patient to assess needs related to . Mother works well with her with encouragement. Reviewed working with , breast, nipples and how to protect the nipples with an optimal deep latch, good positioning, and good hand washing. Mother has a small area on the middle tip of her left nipple that is discolored purple. On the right nipple there's red on the tip. Mother confirms that she has been latching infant by not waiting until infant opens up wide, then trying to squeeze the nipple into the infants mouth. Encouraged understanding the benefits of skin to skin, responding to feeding cues, frequencies of feeding 8-12 times in 24 hours (approximately 2-3 hours), duration of feedings, milk production, intake/output feeding sheet and signs of adequate intake encouraging swallowing at the breast. Reviewed positioning and alignment, supporting breast, off-centered (asymmetrical latch) and leading with the chin with big, open, wide gape. After a few attempts to encourage to open wider for an optimal latch, then infant latched optimally to the left breast in football position. Education given to mother of how to visualize suck/swallow ratios and listen for drinking at the breast. Infant was able to maintain latch without discomfort to mother. Nipple care reviewed with optimal latch and good positioning, and to have clean hands when touching the nipple/breast. After 15 minutes infant self detached, was placed skin to skin, then when feeding cues were visualized mother offered the right breast using football positioning and sandwich hold. Mother voiced understanding of the difference between non-effective nursing with piston jaw movement and effective rocking motion with the jaw dropping for swallowing, and not having pain with good latching with exception to the soreness already developed with poor latches prior to consult and learning more effective techniques. Mother has a desire to go home today and is confident, however, infant is not 24 hours old and has 4 stool diapers and no voids at this time. 24 hour testing hasn't been completed yet due to the age of the infant, so jaundice level is unknown at this time and infant is coomb + with bruising at 38.1 EGA. Encouraged mother to practice effective and keep infant swallowing at the breast. Resources used to facilitate learning were used from the tool and mother watched the [facility] website latching video. Mother voiced understanding of the education shared, calling for assistance if the infant does not latch or if there is discomfort with . Reported to the primary RN.
[2022-09-03 16:17] LABS: Rapid Plasma Reagin Non-Reactive (NonReactive)
--- NOTE | 2022-09-03 17:16 | PM.OBPNVD ---
OB - PN: Subj Subjective Date/time seen: 09/03/22 17:16 Narrative: Pain OK. Wants circumcision for son. Would like to go home. OB - PN: Obj Data Labs CBC & Chem 7: 09/03/22 04:02 Labs: Laboratory Results - last 24 hr 09/02/22 09/03/22 05:48 04:02 Hgb 9.2 L Hct 28.9 L RPR Non-reactive OB - PN A/P Plan Comments: A: PPD#1, doing well. P: Reviewed circumcision. Home to f/u 6 weeks. Exam Psych: Other: AVSS ABD soft, nontender, fundus firm EXT nontender
== END 2022-09-03 18:40 | disposition home or self-care (01) | DRG 560 ==
LOC: ANHLDR 06:47 → ANHOB2 18:52
PROVIDERS: Admitting Provider Obstetrics & Gynecology; PCP Emergency Medicine; Visit Provider Obstetrics & Gynecology
DX: O66.0 Obstructed labor due to shoulder dystocia (principal); O69.81X0 Labor and delivery complicated by cord around neck, without compression, not applicable or unspecified; O76 Abnormality in fetal heart rate and rhythm complicating labor and delivery; Z3A.39 39 weeks gestation of pregnancy; Z37.0 Single live birth
CPT/HCPCS: 36415; 85014; 85018; 85025; 86592; 86850; 86900; 86901; 90715; A9270; J2405; J2590; J2795; J7120

== ENCOUNTER 2024-09-19 06:00 | Inpatient (IN) | payer OTHER, SELFPAY ==
[2024-09-19] VITALS (202 sets, daily range): BP systolic 76–118; BP diastolic 34–86; PULSE 64–201; RESP 12; TEMP 36.2–36.8; O2SAT 68–100; BMI 35.0
--- NOTE | 2024-09-19 06:00 | LDADM ---
This patient, Minda Galvin, was admitted to Labor/Delivery/Recovery 108 on 09/19/24 at 06:00. Plans for labor, pain management and were discussed with patient. Patient/family oriented to hospital policies and general routines including ID bracelet, bed and alarms, visiting hours, pain management, procedures, bathroom and other care routines, personal items, smoking policy, room service/diet and guest tray routines, infant security routines, and visiting hours. Patient/Family are encouraged to report perceived risks to care and to ask questions if they do not understand what they are told or what they should do. See OBI[facility] for further documentation.
[2024-09-19] MEDS: OXYTOCIN 30 UNITS/NS 500 ML 30 UNITS/500 ML BAG IV CONT (06:59)
[2024-09-19] MEDS: LACTATED RINGERS 1,000 ML 125 ML IV CONT ×3 (06:59→13:28)
[2024-09-19 07:00] LABS: Basophils Percent Auto 0.3 % (0.2-1.2); Eosinophils Absolute Auto 0.1 K/mm3 (0-0.3); Eosinophils Percent Auto 0.5 % (0-4.4); Hematocrit 32.7 % (37.0-47.0); Immature Granulocyte Absolute 0.09 K/mm3 (0.00-0.031); Immature Granulocyte Percent A 0.8 % (0-0.5); Lymphocytes Absolute Auto 2.34 K/mm3 (0.9-3.2); Lymphocytes Percent Auto 21.3 % (18.3-44.2); Mean Corpuscular HGB Conc 33.6 g/dl (32-36); Mean Corpuscular Hemoglobin 30.8 pg (26-34); Mean Corpuscular Volume 91.6 fl (80-100); Mean Platelet Volume 9.4 fl (7.4-10.4); Monocytes Absolute Auto 0.9 K/mm3 (0.1-0.6); Neutrophils Absolute Auto 7.6 K/mm3 (1.3-6.7); Neutrophils Percent Auto 69.1 % (45.5-73.1); Platelet Count Result 319 k/mm3 (150-375); Red Blood Count 3.57 M/mm3 (4.2-5.4)
[2024-09-19 07:43] LABS: HIV 1/2 Ab P24 Ag Result Negative (Negative)
[2024-09-19 07:51] LABS: Rapid Plasma Reagin Non-Reactive (NonReactive)
--- NOTE | 2024-09-19 08:36 | PM.IMHP ---
H&P: HPI History of Present Illness Date/Time: 09/19/24 08:36 Chief Complaint: Induction of labor Narrative: 29 y/o at 39 2/7 weeks here for scheduled induction of labor. GBS neg. H/o delivery of 9#8oz baby with shoulder dystocia. In this , EFW at 36 weeks 6#12oz. Also interested in tubal ligation. Review of Systems Review of Systems: All systems reviewed & are unremarkable except as noted in HPI and below PMFSH Past Medical History Medical History Anxiety Asthma Kidney stones Surgical History Surgical History History of appendectomy History of tonsillectomy Family History Family History Mother Family history of cardiovascular disease Colon cancer Sibling Diabetes mellitus Grandparent Diabetes mellitus Cerebrovascular accident Social History Social History Smoking packs per day: 0.5 Smoking cigarettes per day: 10.0 Years smoked: 5 Smoking pack-years: 2.50 Smoking status: Former smoker Second hand tobacco smoke exposure: No Alcohol intake: never Substance use: never Last use: 12/07/19 Do You Feel Safe in your Home?: Yes Lack of Transportation: No Lack of Food: Never True Current Housing: I Have Housing Concerned About Future Housing: No Difficulty Paying Gas/Electric Bills: No Difficulty Paying for Meds: No Currently Unemployed: No Education: High School Diploma/GED Difficulty w/ Childcare or Family Care: No Gender identity (if verbalized by the patient): Female Spiritual care concerns: No Meds Home Medications and Allergies Home Medications Medication Instructions Recorded Confirmed Type famotidine 20 mg tablet (Pepcid) 20 mg PO DAILY 08/16/22 09/19/24 History prenat.vits,mike,hae-bnah-vixnw 1 tablet PO DAILY 08/16/22 09/19/24 History albuterol sulfate 90 mcg/actuation 90 mcg inhalation DAILY 08/22/24 08/22/24 History aerosol inhaler fluticasone 100 mcg-salmeterol 50 1 inh inhalation Q12H 08/22/24 09/19/24 History mcg/dose blistr powdr for inhalation (Advair Diskus) Allergies Allergy/AdvReac Type Severity Reaction Status Date / Time morphine Allergy Unknown Hives Verified 08/22/24 15:31 ketorolac [From Toradol] Allergy Palpitation Verified 08/22/24 15:31 s nitrofurantoin Allergy Swelling Verified 08/22/24 15:31 [From Macrobid] of Lip/Tongue/Throat prochlorperazine AdvReac Palpitation Verified 08/22/24 15:31 [From Compazine] s Vital Signs Vital Signs - 24 hr 09/19/24 06:48 09/19/24 07:00 09/19/24 07:30 Temperature Pulse Rate 89 100 89 Blood Pressure 113/64 93/52 L 97/59 L 09/19/24 06:41 09/19/24 08:00 Temperature 36.2 C L Pulse Rate 94 Blood Pressure 91/75 L Exam Const: Orientation/consciousness: patient oriented x3 Other: Well-developed, well-nourished female in no acute distress. Neck: Thyroid: thyroid normal Lymphatic: no lymphadenopathy noted (in neck, axilla or inguinal nodes) Resp: Effort & Inspection: normal respiratory effort Auscultation: clear to auscultation bilaterally Cardio: Rate: regular rate Rhythm: regular rhythm Heart sounds: S1 normal heart sound present and S2 normal heart sound present GI: Other: ABD: Soft, nontender, nondistended, gravid. NST reactive. TOCO: irregular contractions. No guarding or rebound tenderness. No hepatosplenomegaly. : General: Yes no CVA tenderness Other: Cervix 4/50/-2. AROM with clear fluid. Vertex. Back/Spine/Pelvis: Back: no CVA tenderness Skin: General skin exam: normal color and no rashes or lesions noted Neuro: General: patient oriented x3 Extrem: Other: Extremities: nontender with no edema Psych: Mental Status: mental status grossly normal Affect: normal affect H&P: Results Labs Labs: Short CBC 09/19/24 Range/Units 06:42 WBC 11.0 H (4.5-10.0) K/mm3 Hgb 11.0 L (12.0-15.0) g/dL Hct 32.7 L (37.0-47.0) % Plt Count 319 (150-375) k/mm3 Assessment and Plan Assessment and plan (1) Term : Code(s): Z34.90 - Encounter for supervision of normal , unspecified, unspecified trimester Status: Acute Assessment and Plan: A: IUP at 39 2/7 weeks with favorable cervix. P: She desires induction of labor. We reviewed risks/benefits associated with induction of labor, and also discussed risks of shoulder dystocia. She elects to proceed with induction of labor.
--- NOTE | 2024-09-19 09:20 | P.PNAN_ITS ---
Anes - Eval Pre Procedure Procedure: Labor epidural Date/Time: 09/19/24 09:20 Surgeon: Giulia Preop Diagnosis: Pain during labor Pre Op Diagnosis: IOL Patient Data Age: 29 Gender: F Height: 1.57 m Weight: 87 kg Last Vital Signs Temp 36.2 C L 09/19/24 06:41 Pulse 80 09/19/24 09:00 BP 108/74 09/19/24 09:00 Allergies Allergy/AdvReac Type Severity Reaction Status Date / Time morphine Allergy Unknown Hives Verified 08/22/24 15:31 ketorolac [From Toradol] Allergy Palpitation Verified 08/22/24 15:31 s nitrofurantoin Allergy Swelling Verified 08/22/24 15:31 [From Macrobid] of Lip/Tongue/Throat prochlorperazine AdvReac Palpitation Verified 08/22/24 15:31 [From Compazine] s Home Medications Medication Instructions Recorded Confirmed Type famotidine 20 mg tablet (Pepcid) 20 mg PO DAILY 08/16/22 09/19/24 History prenat.vits,mike,zkf-jdsr-szrif 1 tablet PO DAILY 08/16/22 09/19/24 History albuterol sulfate 90 mcg/actuation 90 mcg inhalation DAILY 08/22/24 08/22/24 History aerosol inhaler fluticasone 100 mcg-salmeterol 50 1 inh inhalation Q12H 08/22/24 09/19/24 History mcg/dose blistr powdr for inhalation (Advair Diskus) Laboratory Tests 09/19/24 06:42 WBC 11.0 H K/mm3 (4.5-10.0) RBC 3.57 L M/mm3 (4.2-5.4) Hgb 11.0 L g/dL (12.0-15.0) Hct 32.7 L % (37.0-47.0) MCV 91.6 fl (80-100) MCH 30.8 pg (26-34) MCHC 33.6 g/dl (32-36) RDW 13.0 % (11.5-14.5) Plt Count 319 k/mm3 (150-375) MPV 9.4 fl (7.4-10.4) Immature Gran % (Auto) 0.8 H % (0-0.5) Neut % (Auto) 69.1 % (45.5-73.1) Lymph % (Auto) 21.3 % (18.3-44.2) [place] % (Auto) 8.0 % (2.6-8.5) Eos % (Auto) 0.5 % (0-4.4) Baso % (Auto) 0.3 % (0.2-1.2) Lymph # (Auto) 2.34 K/mm3 (0.9-3.2) [place] # (Auto) 0.9 H K/mm3 (0.1-0.6) Eos # (Auto) 0.1 K/mm3 (0-0.3) Baso # (Auto) 0.0 K/mm3 (0.0-0.1) Abs Immat Gran (auto) 0.09 H K/mm3 (0.00-0.031) Absolute Neuts (auto) 7.6 H K/mm3 (1.3-6.7) Absolute Nucleated RBC 0.000 K/mm3 (0.0-0.012) Nucleated RBC % 0.0 % (0.0-0.2) RPR Non-reactive (NonReactive) HIV 1&2 Ab/P24 Ag 4thGn Negative (Negative) Blood Type A Positive Antibody Screen Negative Patient hx anesthesia problems: none Family hx anesthesia problems: none Results Review: All pre-operative results and documents have been reviewed as part of the pre- operative evaluation. [facility] Past Medical History Medical History Anxiety Asthma Kidney stones Surgical History Surgical History History of appendectomy History of tonsillectomy Family History Family History Mother Family history of cardiovascular disease Colon cancer Sibling Diabetes mellitus Grandparent Diabetes mellitus Cerebrovascular accident Social History Social History Smoking packs per day: 0.5 Smoking cigarettes per day: 10.0 Years smoked: 5 Smoking pack-years: 2.50 Smoking status: Former smoker Second hand tobacco smoke exposure: No Alcohol intake: never Substance use: never Last use: 12/07/19 Do You Feel Safe in your Home?: Yes Lack of Transportation: No Lack of Food: Never True Current Housing: I Have Housing Concerned About Future Housing: No Difficulty Paying Gas/Electric Bills: No Difficulty Paying for Meds: No Currently Unemployed: No Education: High School Diploma/GED Difficulty w/ Childcare or Family Care: No Gender identity (if verbalized by the patient): Female Spiritual care concerns: No Exam Day of Procedure 09/19/24 09:20 Patient weight: obese Heart: regular rate and rhythm Lungs: clear to auscultation Airway: Mallampati scale class II Neurological: alert and oriented
[2024-09-19] MEDS: FAMOTIDINE 20 MG/2 ML VIAL IV PUSH (11:16)
--- NOTE | 2024-09-19 12:07 | PM.OBPNLAB ---
Pain Control Date/time seen: 09/19/24 12:07 Comfortable with epidural. AVSS NST reactive TOCO: contractions every 2-3 min Cervix 7cm per RN Continue labor.
[2024-09-19] MEDS: ACETAMINOPHEN 500 MG TABLET 1000 MG PO (12:23)
--- NOTE | 2024-09-19 18:04 | P.PCNOB_ITS ---
OB - Vaginal Delivery Note Procedure Delivery date: 09/19/24 Events: Elective Induction of Labor Induction method: Per Pitocin Protocol Delivery augmentation: Rupture of Membranes Delivery monitor: External FHT and External Uterine Route of delivery: Laceration Description: None Specimen: Yes (cord blood) Quantitative Blood Loss (ml): 220 Anesthesia type: Epidural Disposition: PACU Complications: None Narrative: 29 y/o at 39 2/7 weeks gestation who presented to the hospital for induction of labor. Oxytocin was administered intravenously. Amniotomy was performed with return of clear fluid. She received an epidural for pain control. Her labor progressed and her cervix dilated completely. She pushed with good effort and delivered the 's head to the perineum, followed by the body. The nose and mouth were bulb suctioned. After a delay, the cord was clamped and cut. The infant was handed off the field. Cord blood was collected. The placenta delivered spontaneously and was grossly normal in appearance. The usual 3 vessel cord was noted. There were no lacerations. Needle and instrument counts were correct. The patient was taken to recovery room in stable condition. The infant went to the nursery in stable condition. I was present and scrubbed for the entire delivery. [place] Baby Date of : 09/19/24 Time of : 17:49 Gestational Age by Date: 39 Infant gender: Male presentation: vertex position: Left Occiput Transverse Placenta delivery description: Spontaneous and Normal Configuration Cord Vessel Description: 3 Vessels and Delayed Cord Clamping score one minute: 9 score five minutes: 9
--- NOTE | 2024-09-19 18:06 | P.DS_ITS ---
DS: Admitting Diagnosis Discharge Date 09/20/24 Admitting Diagnosis IUP at 39 2/7 weeks DS: Discharge Diagnosis Discharge Diagnosis (1) (normal spontaneous vaginal delivery): Code(s): O80 - Encounter for full-term uncomplicated delivery Status: Acute OB - DS: Summary OB Procedures : None OB Procedures Intrapartum: Spontaneous Vag Delivery OB Procedures: : None Peripartum Data Laceration Description: None Time Spent with Patient Time attestation: Total time spent providing and/or coordinating discharge services: DS: Data Data Completed and Pending Labs on day of discharge: Labs from last 24 hours 09/19/24 06:42 WBC 11.0 H RBC 3.57 L Hgb 11.0 L Hct 32.7 L MCV 91.6 MCH 30.8 MCHC 33.6 RDW 13.0 Plt Count 319 MPV 9.4 Immature Gran % (Auto) 0.8 H Neut % (Auto) 69.1 Lymph % (Auto) 21.3 [place] % (Auto) 8.0 Eos % (Auto) 0.5 Baso % (Auto) 0.3 Lymph # (Auto) 2.34 [place] # (Auto) 0.9 H Eos # (Auto) 0.1 Baso # (Auto) 0.0 Abs Immat Gran (auto) 0.09 H Absolute Neuts (auto) 7.6 H Absolute Nucleated RBC 0.000 Nucleated RBC % 0.0 RPR Non-reactive HIV 1&2 Ab/P24 Ag 4thGn Negative Blood Type A Positive Antibody Screen Negative Discharge Plan Discharge Attending physician on discharge: Shmuel Platt Discharging Clinician: Shmuel Platt Patient Disposition: Home, Self-Care Activity: pelvic rest Diet: regular Discharge Instructions: Call or return if temperature above 100.4? F, increased abdominal pain, increased vaginal bleeding or any new problems. Stand Alone Forms: General Discharge Information Follow-up/Referrals: Shmuel Platt MD [Physician] - 6 Weeks Discharge Medications: New ibuprofen 600 mg tablet 600 mg PO Q6H PRN (Reason: cramps) Qty: 30 0RF Continued fluticasone propion-salmeterol [Advair Diskus] 100-50 mcg/dose Blister With Device 1 inh INHALATION Q12H albuterol sulfate 90 mcg/actuation HFA aerosol inhaler 90 mcg INHALATION DAILY famotidine [Pepcid] 20 mg Tablet 20 mg PO DAILY prenat.vits,mike,[id number]-vihi-jezxq Tablet 1 tablet PO DAILY Date of admission: 09/19/24 06:00 Primary Care Provider: Chuckie Murray Admitting Provider: Shmuel Platt Attending physician on admission: Shmuel Platt Condition: Stable
[2024-09-19] MEDS: OXYTOCIN 30 UNITS/NS 500 ML 30 UNITS/500 ML BAG 125 UNITS IV CONT (18:37)
[2024-09-19] MEDS: BENZOCAINE 20% AER SPR (*SP) 56 GM CAN 1 SPRAY TOPICAL (19:09)
[2024-09-19] MEDS: ACETAMINOPHEN 325 MG TABLET 650 MG PO (19:09)
[2024-09-19] MEDS: WITCH HAZEL 40 PADS 1 PAD TOPICAL (19:09)
[2024-09-19] MEDS: IBUPROFEN 600 MG TABLET PO (21:05)
[2024-09-20 00:58] VITALS: BP 103/55; PULSE 75; RESP 14; TEMP 36.7; O2SAT 97
[2024-09-20 05:48] LABS: Hematocrit 30.8 % (37.0-47.0)
[2024-09-20 08:00] VITALS: BP 98/64; PULSE 78; RESP 20; TEMP 37.1; O2SAT 98
[2024-09-20] MEDS: MULTIVIT/MIN/PREN/FOL AC/IRON TABLET 1 TAB PO (08:04)
[2024-09-20] MEDS: DOCUSATE SODIUM 100 MG CAPSULE PO ×2 (08:04→17:09)
[2024-09-20] MEDS: IBUPROFEN 600 MG TABLET PO ×2 (08:04→17:09)
[2024-09-20] MEDS: ACETAMINOPHEN 325 MG TABLET 650 MG PO ×2 (08:10→17:09)
--- NOTE | 2024-09-20 08:58 | WPDANLDPN2 ---
Anes-Prog Note L&D Date/Time: 09/20/24 08:58 Neuraxial method: epidural Epidural/Spinal procedure site: tender Neuro status: Neuro function grossly intact. Cardiovascular status: normal Respiratory status: normal Airway patency: baseline Mental status: baseline Post-Op hydration status: normal Vital Signs: Last Vital Signs Temp 36.7 C 09/20/24 00:58 Pulse 75 09/20/24 00:58 Resp 14 09/20/24 00:58 BP 103/55 L 09/20/24 00:58 Pulse Ox 97 09/20/24 00:58 O2 Del Method Room Air 09/19/24 21:07 Pain score (VAS): 3/10 I/O: Intake & Output 09/19/24 09/20/24 09/20/24 23:59 07:59 15:59 Output Total 305 Balance -305 Post-procedural complaints: none Patient feedback: Patient satisfied with anesthetic care.
[2024-09-20] MEDS: FAMOTIDINE 20 MG TABLET PO (10:44)
--- NOTE | 2024-09-20 11:30 | PC.NURSE ---
1130- Introductions were made, then consulted with patient to assess needs related to . Discussed with mother her?plans to feed?her and the?experience so far. She says that the latch doesn't hurt, just that her nipples feel 'sensitive'. She says this baby is doing better with than her other 2 boys. Resources provided for inpatient and outpatient services with the feeding sheet, mom/baby guide, admission folder, and name/number written on the communication board. Mother voiced understanding of information and will call if there is a request for assistance. Reported to the Primary RN.
[2024-09-20 11:32] VITALS: BP 111/54; PULSE 66; RESP 18; TEMP 36.8; O2SAT 100
--- NOTE | 2024-09-20 12:12 | PM.OBPNVD ---
OB - PN: Subj Subjective Date/time seen: 09/20/24 12:12 Narrative: Pain OK. Would like circumcision for son. Also, would like to go home. OB - PN: Obj Data Labs 09/20/24 04:02 Labs: Laboratory Results - last 24 hr 09/20/24 04:02 Hgb 10.0 L Hct 30.8 L OB - PN A/P Plan Comments: A: PPD#1, doing well. P: Reviewed circ. Home to f/u 6 weeks. Exam Psych: Other: AVSS ABD soft, nontender, fundus firm EXT nontender
[2024-09-21 11:33] VITALS: BP 111/62; PULSE 78; RESP 18; TEMP 36.8; O2SAT 100
== END 2024-09-20 19:15 | disposition home or self-care (01) | DRG 560 ==
LOC: ANHLDR 18:08 → ANHOB2 20:49
PROVIDERS: Admitting Provider Obstetrics & Gynecology; PCP Emergency Medicine; Visit Provider Obstetrics & Gynecology
DX: O66.0 Obstructed labor due to shoulder dystocia (principal); Z37.0 Single live birth; Z3A.39 39 weeks gestation of pregnancy
CPT/HCPCS: 36415; 85014; 85018; 85025; 86592; 86703; 86850; 86900; 86901; A9270; G0432; J2590; J2795; J7120